=== PATIENT | female | born 1925 | race Caucasian/White ===

== ENCOUNTER 2016-12-20 18:34 | Inpatient (IN) | payer OTHER ==
--- NOTE | 2016-12-20 18:50 | PDOC ---
History of Present Illness <Gena Lacy Jenna - Last Filed: 12/20/16 23:05> - General History Source: Patient, EMS, Shelter Records Exam Limitations: No Limitations - History of Present Illness Initial Comments: 12/20/16 19:25 The patient is an 89 year old female (DNR), with significant past medical history of A-fib, CHF, HTN, hypothyroidism, who presents to the emergency department via ambulance from [facility] with 2 days of rectal bleeding. The staff at the prison noticed blood in the stool on Wednesday, 2 days ago. The patient recently switched from Coumadin to xarelto. The prison staff stopped xarelto 2 days ago when they noticed melena. EMS initially reported hypotension. She has a cali catheter in place. Denies fever, chills, nausea, vomiting. Denies abdominal pain. Allergies: none reported PCP: Dr. Goodwin <Erin Garland - Last Filed: 12/21/16 00:17> - General Stated Complaint: GI BLEED Time Seen by Provider: 12/20/16 18:43 Past History - Past Medical History Cardiac Disorders: Yes ([place]. A-Fib) CHF: Yes HTN: Yes Thyroid Disease: Yes (Hypothyroidism) - Psycho/Social/Smoking Cessation Hx Smoking History: Never smoked <Pablito Lacyjoselyn West - Last Filed: 12/20/16 23:05> <Erin Garland - Last Filed: 12/21/16 00:17> - Past Medical History Allergies/Adverse Reactions: Allergies Allergy/AdvReac Type Severity Reaction Status Date / Time No Known Allergies Allergy Verified 12/20/16 19:00 Home Medications: Ambulatory Orders Amino Acids/Protein Hydrolys [Proteinex Liquid] 30 ml PO TID 12/20/16 Aspirin [ASA -] 81 mg PO DAILY 12/20/16 Atorvastatin Ca [Lipitor] 80 mg PO HS 12/20/16 Brimonidine Tartrate [Alphagan P 0.1% -] 1 drop TID 12/20/16 Docusate Sodium 100 mg PO DAILY 12/20/16 Furosemide [Lasix] 40 mg PO DAILY 12/20/16 Latanoprost 0.005% Eye Drops [Xalatan 0.005% Eye Drops -] 1 drop HS 12/20/16 Levothyroxine [Synthroid -] 125 mcg PO DAILY 12/20/16 Metoprolol Tartrate 75 mg PO DAILY 12/20/16 Potassium Chloride [Klor-Con 10] 10 meq PO DAILY 12/20/16 Ranolazine [Ranexa -] 500 mg PO BID 12/20/16 Rivaroxaban [Xarelto -] 10 mg PO DAILY 12/20/16 Sennosides [Senokot] 8.6 mg PO BID 12/20/16 Valsartan [Diovan] 80 mg PO DAILY 12/20/16 Zinc Sulfate [Zinc-220] 220 mg PO DAILY 12/20/16 Review of Systems - Review of Systems Comments:: 12/20/16 19:26 CONSTITUTIONAL: Absent: fever, chills, diaphoresis, generalized weakness, malaise, loss of appetite HEENT: Absent: rhinorrhea, nasal congestion, throat pain, throat swelling, difficulty swallowing, mouth swelling, ear pain, eye pain, visual Changes CARDIOVASCULAR: Absent: chest pain, syncope, palpitations, irregular heart rate, lightheadedness , peripheral edema RESPIRATORY: Absent: cough, shortness of breath, dyspnea with exertion, orthopnea, wheezing, stridor, hemoptysis GASTROINTESTINAL: Present: melena Absent: abdominal pain, abdominal distension, nausea, vomiting, diarrhea, constipation, hematochezia GENITOURINARY: Absent: dysuria, frequency, urgency, hesitancy, hematuria, flank pain, genital pain MUSCULOSKELETAL: Absent: myalgia, arthralgia, joint swelling SKIN: Absent: rash, itching, pallor HEMATOLOGIC/IMMUNOLOGIC: Absent: easy bleeding, easy bruising, lymphadenopathy, frequent infections ENDOCRINE: Absent: unexplained weight gain, unexplained weight loss, heat intolerance, cold intolerance NEUROLOGIC: Absent: headache, focal weakness or paresthesias, dizziness, unsteady gait, seizure, mental status changes, bladder or bowel incontinence PSYCHIATRIC: Absent: anxiety, depression, suicidal or homicidal ideation, hallucinations. <Erin Garland - Last Filed: 12/21/16 00:17> *Physical Exam - Vital Signs Last Vital Signs Temp Pulse Resp BP Pulse Ox 97.7 F 77 18 108/58 100 12/20/16 18:35 12/20/16 18:35 12/20/16 18:35 12/20/16 18:35 12/20/16 18:35 - Physical Exam Comments: 12/20/16 19:26 GENERAL: Well developed, well nourished. Awake and alert. In no acute distress. HEENT: Normocephalic, atraumatic. PERRLA, EOMI. No conjunctival pallor. Sclera are non- icteric. Moist mucous membranes. Oropharynx is clear. NECK: Supple. Full ROM. No JVD. Carotid pulses 2+ and symmetric, without bruits. No thyromegaly. No lymphadenopathy. CARDIOVASCULAR: Regular rate and rhythm. No murmurs, rubs, or gallops. Distal pulses are 2+ and symmetric. PULMONARY: No evidence of respiratory distress. Lungs clear to auscultation bilaterally. No wheezing, rales or rhonchi. ABDOMINAL: Soft. Non-tender. Non-distended. No rebound or guarding. No organomegaly. Normoactive bowel sounds. RECTAL: melena present MUSCULOSKELETAL Normal range of motion at all joints. No bony deformities or tenderness. No CVA tenderness. EXTREMITIES: No cyanosis. No clubbing. No edema. No calf tenderness. SKIN: + 1cm stage 2 sacral decubitus ulcer. Warm and dry. Normal capillary refill. No rashes. No jaundice. NEUROLOGICAL: Alert, awake, appropriate. Cranial nerves 2-12 intact. No deficits to light touch and temperature in face, upper extremities and lower extremities. No motor deficits in the in face, upper extremities and lower extremities. Normoreflexic in the upper and lower extremities. Normal speech. Toes are downgoing bilaterally. Gait is normal without ataxia. PSYCHIATRIC: Cooperative. Good eye contact. Appropriate mood and affect. <Erin Garland - Last Filed: 12/21/16 00:17> Heart Score/ECG Review #1 12/21/16 00:14 A-fib with a competing junctional pacemaker with a rate of 71bpm. St & T wave abnormality.Old inferior infarct. P-R-T axes * -17 185 <Erin Garland - Last Filed: 12/21/16 00:17> ED Treatment Course - LABORATORY CBC & Chemistry Diagram: 12/20/16 19:41 12/20/16 19:41 <Gena Lacy - Last Filed: 12/20/16 23:05> - LABORATORY CBC & Chemistry Diagram: 12/20/16 19:41 12/20/16 19:41 <Erin Garland - Last Filed: 12/21/16 00:17> Medical Decision Making - Critical Care Time Total Critical Care Time (minutes): 60 Critical Care Statement: The care of this patient involved high complexity decision making to prevent further life threatening deterioration of the patient 's condition and/or to evalute & treat vital organ system(s) failure or risk of failure. - Medical Decision Making 12/20/16 23:05 initially hypotensive upon arrival,this 89 yo female p/w melena -pt has afib and had been on xeralto and this was stopped on Wednesday when red blood was seen in her stools -today she had black tarry stools hgn=7.9, hemotocrit=25, platelets>300 cardiac enzyme was positive with troponin=0.67 -pt typed and crossed, awaiting 2 units packed rbcs -discussed w Dr Pleitez.He is aware of her postitive troponin. She will be admitted to telemetry. Dr Laws for cards -I did speak to hematology Dr Keita ,covering for Dr Orr and he did not recommend any FFP because her INR is less than 1.5 -the xeralto should be out of her system in 48 hours -however if her bleeding should worsen or vital signs worsen,we may consider these <Gena Lacy - Last Filed: 12/20/16 23:05> *DC/Admit/Observation/Transfer - Discharge Dispostion Admit: Yes <Gena Lacy - Last Filed: 12/20/16 23:05> - Attestations Scribe Attestion: 12/20/16 19:26 Documentation prepared by BREANNE Black, acting as medical practice assistant for Gena Lacy MD. <Erin Garland - Last Filed: 12/21/16 00:17> Diagnosis at time of Disposition: Atrial fibrillation, chronic GI bleeding Qualifiers: GI bleed type/associated pathology: anorectal hemorrhage Qualified Code(s): K62.5 - Hemorrhage of anus and rectum Anemia Qualifiers: Anemia type: other cause Other causes of anemia: other cause, not classified Qualified Code(s): D64.89 - Other specified anemias - Referrals
[2016-12-20] MEDS ORDERED: SODIUM CHLORIDE 500 ML IV STA (18:51)
[2016-12-20] MEDS ORDERED: PANTOPRAZOLE SODIUM 40 MG in SODIUM CHLORIDE 100 ML IVPB ONE (19:18)
[2016-12-20] MEDS ORDERED: PANTOPRAZOLE SODIUM 100 ML IVPB ONE (19:44)
[2016-12-20 19:57] LABS: BASOPHIL 0.4 % (0-2.0); EOSINOPHIL 1.1 % (0-4.5); MCH 29.4 pg (25.7-33.7); MCHC 31.2 g/dl (32.0-36.0); MEAN CELL VOLUME 94.2 fl (80-96); MEAN PLT VOLUME 6.9 fl (7.5-11.1); NEUTROPHILS 82.8 % (42.8-82.8); PLATELET COUNT 358 K/MM3 (134-434); WHITE BLOOD COUNT 12.5 K/mm3 (4.0-10.0)
[2016-12-20 20:09] LABS: INR 1.47 (0.82-1.09); PROTHROMBIN TIME (PATIENT) 16.3 SEC (9.98-11.88)
[2016-12-20 20:19] LABS: ALBUMIN 2.1 g/dl (3.4-5.0); BILIRUBIN,TOTAL 0.3 mg/dL (0.2-1.0); CALCIUM 8.2 mg/dL (8.5-10.1); CREATININE 1.2 mg/dL (0.55-1.02); TOT PROT 5.4 g/dl (6.4-8.2)
[2016-12-20 20:37] LABS: TROPONIN I 0.67 ng/ml (0.00-0.05)
[2016-12-20] MEDS: BRIMONIDINE TARTRATE 0.1% OPHTHALMIC 5 ML BOTTLE OD SCH (23:00)
[2016-12-20] MEDS: RANOLAZINE E.R. 500 MG TABLET (FP) PO SCH (23:01)
[2016-12-20] MEDS: LATANOPROST 0.005% OPHTH SOLN 2.5ML BOTTLE OD SCH (23:01)
[2016-12-20] MEDS ORDERED: ATORVASTATIN CA 80 MG TABLET (FP) ONE (23:02)
[2016-12-20 23:03] LABS: URINE APPEARANCE CLOUDY; URINE BILIRUBIN NEGATIVE (NEGATIVE); URINE BLOOD NEGATIVE (NEGATIVE); URINE COLOR DKYELLOW; URINE GLUCOSE (UA) NEGATIVE (NEGATIVE); URINE KETONE NEGATIVE (NEGATIVE); URINE NITRITE NEGATIVE (NEGATIVE); URINE UROBILINOGEN NEGATIVE E.U./dl (0.2-1.0)
[2016-12-20 23:07] LABS: URINE LEUK ESTERASE 3+ (NEGATIVE); URINE PROTEIN 1+ (NEGATIVE)
[2016-12-20] MEDS: ATORVASTATIN CA 80 MG TABLET (FP) PO SCH (23:07)
[2016-12-20 23:09] LABS: URINE BACTERIA FEW /hpf (NONE SEEN); URINE HYALINE CAST 14 /lpf; URINE MUCUS RARE; URINE RBC 13 /hpf (0-3); URINE WBC 593 /hpf (3-5)
[2016-12-20 23:42] LABS: TROPONIN I 0.59 ng/ml (0.00-0.05)
[2016-12-21] MEDS ORDERED: LEVOTHYROXINE NA 25 MCG TABLET (FP) ONE (07:43)
[2016-12-21] MEDS: LEVOTHYROXINE NA 125 MCG TABLET (FP) PO SCH (07:52)
--- NOTE | 2016-12-21 08:26 | HP ---
Admitting History and Physical - Admission Chief Complaint: 89 y.o F was admitted to [facility] from [facility] due to melena, GI bleed. Pt was previously on Xarelto for AFIB, but it was d/c 2 days [facility]. In the ER transfused 2 units PRBC and admitted for further management. History of Present Illness: S/P [place]-NSTENMI. UTI CAD. Angina. Chronic AFIB.Diastolic CHF PAD, B/L LE Bypass sx Hypothyroidism E.Coli infection HTN Hx TB Pressure sore Muscle weakness Cystectomy. History Source: Medical Record Limitations to Obtaining History: Clinical Condition - Past Medical History Cardiovascular: Yes: CHF, HTN, [place] Endocrine: Yes: Hypothyroidism - Past Surgical History Past Surgical History: Yes: Bypass (Arterial bypasses in BL Legs,), Cystectomy - Smoking History Smoking history: Never smoked Have you smoked in the past 12 months: No - Alcohol/Substance Use Hx Alcohol Use: No Home Medications - Allergies Allergies/Adverse Reactions: Allergies Allergy/AdvReac Type Severity Reaction Status Date / Time No Known Allergies Allergy Verified 12/20/16 19:00 - Home Medications Home Medications: Ambulatory Orders Amino Acids/Protein Hydrolys [Proteinex Liquid] 30 ml PO TID 12/20/16 Aspirin [ASA -] 81 mg PO DAILY 12/20/16 Atorvastatin Ca [Lipitor] 80 mg PO HS 12/20/16 Brimonidine Tartrate [Alphagan P 0.1% -] 1 drop TID 12/20/16 Docusate Sodium 100 mg PO DAILY 12/20/16 Furosemide [Lasix] 40 mg PO DAILY 12/20/16 Latanoprost 0.005% Eye Drops [Xalatan 0.005% Eye Drops -] 1 drop HS 12/20/16 Levothyroxine [Synthroid -] 125 mcg PO DAILY 12/20/16 Metoprolol Tartrate 75 mg PO DAILY 12/20/16 Potassium Chloride [Klor-Con 10] 10 meq PO DAILY 12/20/16 Ranolazine [Ranexa -] 500 mg PO BID 12/20/16 Rivaroxaban [Xarelto -] 10 mg PO DAILY 12/20/16 Sennosides [Senokot] 8.6 mg PO BID 12/20/16 Valsartan [Diovan] 80 mg PO DAILY 12/20/16 Zinc Sulfate [Zinc-220] 220 mg PO DAILY 12/20/16 Family Disease History - Family Disease History Family History: Unremarkable Review of Systems Unable to obtain ROS, reason: patient condition Physical Examination Vital Signs: Vital Signs Temperature 97.5 F L 12/21/16 07:34 Pulse Rate 79 12/21/16 07:34 Respiratory Rate 18 12/21/16 07:34 Blood Pressure 103/58 12/21/16 07:34 O2 Sat by Pulse Oximetry (%) 97 12/21/16 07:34 Constitutional: Yes: Calm, Moderate Distress, Other (Acrocyanosis). No: Diaphoresis Eyes: Yes: Conjunctiva Clear, EOM Intact HENT: Yes: Atraumatic, Normocephalic. No: Drooling, Pharyngeal Erythema, Rhinnorhea Neck: Yes: Supple, Trachea Midline, Decreased ROM. No: Lymphadenopathy Cardiovascular: Yes: Pulse Irregular, Murmur. No: Bradycardia, Tachycardia Respiratory: Yes: CTA Bilaterally. No: Accessory Muscle Use, Bradypnea, Cough, Diminished Gastrointestinal: Yes: Soft. No: Abdomen, Obese, Palpable Mass, Tenderness ...Rectal Exam: Yes: Deferred Renal/: Yes: Collins Present Breast(s): Yes: WNL Musculoskeletal: Yes: Muscle Weakness Extremities: Yes: Other (Acrocyanosis UE). No: Amputation, Calf Tenderness Edema: No Peripheral Pulses WNL: No Integumentary: Yes: Pressure Ulcer Neurological: Yes: Alert, Oriented. No: Aphasia, Babinski negative, Facial Droop, Lethargy, Loss of Sensation ...Motor Strength: WNL Psychiatric: Yes: WNL Labs: Laboratory Results - last 24 hr 12/20/16 12/20/16 12/20/16 19:41 19:41 19:41 WBC 12.5 H RBC 2.70 L Hgb 7.9 L Hct 25.4 L MCV 94.2 MCHC 31.2 L RDW 20.0 H Plt Count 358 MPV 6.9 L Neutrophils % 82.8 Lymphocytes % 9.0 Monocytes % 6.7 Eosinophils % 1.1 Basophils % 0.4 INR 1.47 H Sodium Potassium Chloride Carbon Dioxide Anion Gap BUN Creatinine Creat Clearance w eGFR Random Glucose Calcium Total Bilirubin AST ALT Alkaline Phosphatase Creatine Kinase Troponin I Total Protein Albumin Urine Color Urine Appearance Urine pH Ur Specific [place] Urine Protein Urine Glucose (UA) Urine Ketones Urine Blood Urine Nitrite Urine Bilirubin Urine Urobilinogen Ur Leukocyte Esterase Urine RBC Urine WBC Ur Epithelial Cells Urine Bacteria Hyaline Casts Urine Mucus Stool Occult Blood Positive Blood Type Antibody Screen Crossmatch 12/20/16 12/20/16 12/20/16 19:41 19:41 19:41 WBC RBC Hgb Hct MCV MCHC RDW Plt Count MPV Neutrophils % Lymphocytes % Monocytes % Eosinophils % Basophils % INR Sodium 142 Potassium 3.9 Chloride 105 Carbon Dioxide 27 Anion Gap 10 BUN 64 H Creatinine 1.2 H Creat Clearance w eGFR 42.30 Random Glucose 117 H Calcium 8.2 L Total Bilirubin 0.3 AST 14 L ALT 16 Alkaline Phosphatase 53 Creatine Kinase 38 Troponin I 0.67 H* Total Protein 5.4 L Albumin 2.1 L Urine Color Urine Appearance Urine pH Ur Specific [place] Urine Protein Urine Glucose (UA) Urine Ketones Urine Blood Urine Nitrite Urine Bilirubin Urine Urobilinogen Ur Leukocyte Esterase Urine RBC Urine WBC Ur Epithelial Cells Urine Bacteria Hyaline Casts Urine Mucus Stool Occult Blood Blood Type A POSITIVE Antibody Screen Negative Crossmatch See Detail 12/20/16 12/20/16 12/20/16 22:40 22:40 23:10 WBC RBC Hgb Hct MCV MCHC RDW Plt Count MPV Neutrophils % Lymphocytes % Monocytes % Eosinophils % Basophils % INR Sodium Potassium Chloride Carbon Dioxide Anion Gap BUN Creatinine Creat Clearance w eGFR Random Glucose Calcium Total Bilirubin AST ALT Alkaline Phosphatase Creatine Kinase 43 Troponin I 0.59 H Total Protein Albumin Urine Color Dkyellow Urine Appearance Cloudy Urine pH 5.0 Ur Specific [place] 1.017 Urine Protein 1+ H Urine Glucose (UA) Negative Urine Ketones Negative Urine Blood Negative Urine Nitrite Negative Urine Bilirubin Negative Urine Urobilinogen Negative Ur Leukocyte Esterase 3+ H Urine RBC 13 Urine WBC 593 Ur Epithelial Cells Rare Urine Bacteria Few Hyaline Casts 14 Urine Mucus Rare Stool Occult Blood Blood Type A POSITIVE Antibody Screen Crossmatch Imaging - Results Chest X-ray: Report Reviewed Problem List - Problems (1) Anemia Assessment/Plan: PRBC TX Follow H/H Code(s): D64.9 - ANEMIA, UNSPECIFIED Qualifiers: Anemia type: other cause Other causes of anemia: acute posthemorrhagic Qualified Code(s): D62 - Acute posthemorrhagic anemia (2) Atrial fibrillation, chronic Assessment/Plan: D/C A/C Control V-Rate Code(s): I48.2 - CHRONIC ATRIAL FIBRILLATION (3) GI bleeding Assessment/Plan: Probably UGI. GI f/u Protonix IV Code(s): K92.2 - GASTROINTESTINAL HEMORRHAGE, UNSPECIFIED Qualifiers: GI bleed type/associated pathology: anorectal hemorrhage Qualified Code (s): K62.5 - Hemorrhage of anus and rectum (4) NSTEMI (non-ST elevated myocardial infarction) Assessment/Plan: Follow Trop I-positive, EKG noted Cardiology Continue BAB Hold Aspirin, a/c 2 GI bleed Code(s): I21.4 - NON-ST ELEVATION (NSTEMI) MYOCARDIAL INFARCTION (5) Acute renal insufficiency Assessment/Plan: Elevated BUN and increased BUN/Creat-probably due to acute GI bleed. Code(s): N28.9 - DISORDER OF KIDNEY AND URETER, UNSPECIFIED (6) UTI (urinary tract infection) Assessment/Plan: UTI, R/o sepsis, Hypothermia, elevated WBC, lactic-p Bld Cx, Ua cx, IV ABX Code(s): N39.0 - URINARY TRACT INFECTION, SITE NOT SPECIFIED Qualifiers: Urinary tract infection type: site unspecified
[2016-12-21] MEDS ORDERED: D5-1/2NS+10 MEQ KCL - 1,000 ML IV SCH (08:45)
[2016-12-21] MEDS: POTASSIUM CHLORIDE 10 MEQ in DEXTROSE 5%-0.45% SALINE 1,000 ML IVPB SCH (09:52)
[2016-12-21] MEDS ORDERED: PANTOPRAZOLE SODIUM 100 ML IVPB SCH (10:00)
[2016-12-21] MEDS: FUROSEMIDE 40 MG TABLET (FP) PO SCH (10:08)
[2016-12-21] MEDS: METOPROLOL TARTRATE 25 MG TABLET (FP) PO SCH (10:08)
[2016-12-21] MEDS: DOCUSATE SODIUM 100 MG CAPSULE (FP) PO SCH (10:11)
[2016-12-21] MEDS: POTASSIUM CHLORIDE TABS 10 MEQ TABLET.ER (FP) PO SCH (10:11)
[2016-12-21] MEDS: RANOLAZINE E.R. 500 MG TABLET (FP) PO SCH ×2 (10:13→22:00)
[2016-12-21 10:23] LABS: BASOPHIL 0.9 % (0-2.0); EOSINOPHIL 0.3 % (0-4.5); MCH 30.8 pg (25.7-33.7); MCHC 33.6 g/dl (32.0-36.0); MEAN CELL VOLUME 91.6 fl (80-96); MEAN PLT VOLUME 6.6 fl (7.5-11.1); NEUTROPHILS 87.7 % (42.8-82.8); PLATELET COUNT 290 K/MM3 (134-434); RDW 16.3 % (11.6-15.6); WHITE BLOOD COUNT 17.2 K/mm3 (4.0-10.0)
[2016-12-21] MEDS: CEFTRIAXONE 50 ML IVPB SCH (10:23)
[2016-12-21] MEDS: BRIMONIDINE TARTRATE 0.1% OPHTHALMIC 5 ML BOTTLE OD SCH ×3 (10:31→22:19)
[2016-12-21 10:32] LABS: THYROID STIMULATING HORMONE 0.4 uIU/ml (0.358-3.74)
[2016-12-21 10:48] LABS: ALBUMIN 2.3 g/dl (3.4-5.0); CALCIUM 8.3 mg/dL (8.5-10.1)
[2016-12-21 10:51] LABS: BILIRUBIN,TOTAL 0.9 mg/dL (0.2-1.0); CREATININE 1.2 mg/dL (0.55-1.02); PHOSPHOROUS 4.5 mg/dL (2.5-4.9); TOT PROT 5.6 g/dl (6.4-8.2)
--- NOTE | 2016-12-21 10:51 | CON.CARD ---
Consult Consult Specialty:: Cardiology Referred by:: Dr. Goodwin Reason for Consultation:: GI bleed on Xarelto, NSTEMI - History of Present Illness Chief Complaint: GI bleed History of Present Illness: 89 year old woman with a history of CAD h/o UT, chronic afib previously on coumadin, recently switched to Xarelto, PAD with h/o b/l LE bypass, HTN, HLD noted to have melena at [facility], Xarelto stopped 2 days ago, sent to ER. Pt. noted to have anemia, evidence of ischemia on ekg, and elevated troponin, she is now s/p 2 units PRBCs. Pt. seen and examined in the ER in nad. awake, alert, oriented. she denies any complaints. denies any chest pain, sob, palpitations, pnd, orthopnea, or LE edema. no lightheadedness or dizziness. no further rectal bleeding. - History Source History Provided By: Patient, Medical Record Limitations to Obtaining History: No Limitations - Past Medical History Cardio/Vascular: Yes: AFIB, CAD, CHF, HTN, Hyperlipdemia, [place] Endocrine: Yes: Hypothyroidism - Past Surgical History Past Surgical History: Yes: Bypass (Arterial bypasses in BL Legs,), Cystectomy - Alcohol/Substance Use Hx Alcohol Use: No - Smoking History Smoking history: Never smoked Have you smoked in the past 12 months: No - Social History Usual Living Arrangement: [facility]dc ADL: Support Services History of Recent Travel: No Home Medications - Allergies Allergies/Adverse Reactions: Allergies Allergy/AdvReac Type Severity Reaction Status Date / Time No Known Allergies Allergy Verified 12/20/16 19:00 - Home Medications Home Medications: Ambulatory Orders Amino Acids/Protein Hydrolys [Proteinex Liquid] 30 ml PO TID 12/20/16 Aspirin [ASA -] 81 mg PO DAILY 12/20/16 Atorvastatin Ca [Lipitor] 80 mg PO HS 12/20/16 Brimonidine Tartrate [Alphagan P 0.1% -] 1 drop TID 12/20/16 Docusate Sodium 100 mg PO DAILY 12/20/16 Furosemide [Lasix] 40 mg PO DAILY 12/20/16 Latanoprost 0.005% Eye Drops [Xalatan 0.005% Eye Drops -] 1 drop HS 12/20/16 Levothyroxine [Synthroid -] 125 mcg PO DAILY 12/20/16 Metoprolol Tartrate 75 mg PO DAILY 12/20/16 Potassium Chloride [Klor-Con 10] 10 meq PO DAILY 12/20/16 Ranolazine [Ranexa -] 500 mg PO BID 12/20/16 Rivaroxaban [Xarelto -] 10 mg PO DAILY 12/20/16 Sennosides [Senokot] 8.6 mg PO BID 12/20/16 Valsartan [Diovan] 80 mg PO DAILY 12/20/16 Zinc Sulfate [Zinc-220] 220 mg PO DAILY 12/20/16 Family Disease History - Family Disease History Family History: Denies Review of Systems - Review of Systems Constitutional: reports: Weakness. denies: No Symptoms, Chills, Diaphoresis, Fever, Lethargy, Loss of Appetite, Malaise, Night Sweats, Unintentional Wgt. Loss, Other Eyes: denies: No Symptoms, Blind Spots, Blurred Vision, Double Vision, Eye Pain , Floaters, Photophobia, Recent Change in Vision, Other HENT: denies: No Symptoms, Difficult Swallowing, Ear Discharge, Ear Pain, Epistaxis, Gingival Bleeding, Hearing Loss, Mouth Swelling, Nasal Congestion, Ocular Prosthesis, Throat Pain, Toothache, Ringing in Ears, Other Neck: denies: No Symptoms, Decreased ROM, Lumps, Pain on Movement, Stiffness, Swollen Glands, Tenderness, Other Cardiovascular: denies: No Symptoms, Chest Pain, Edema, Palpitations, Shortness of Breath, Other Respiratory: denies: No Symptoms, Cough, Exercise Intolerance, Hemoptysis, Orthopnea, PND, Snoring, SOB, SOB on Exertion, Wheezing, Other Gastrointestinal: reports: Melena, Rectal Bleeding. denies: No Symptoms, Abdominal Pain, Bloating, Constipation, Diarrhea, Dysphagia, Indigestion, Nausea , Vomiting, Vomiting Blood, Other Genitourinary: denies: No Symptoms, Burning, Discharge, Dysuria, Flank Pain, Frequency, Hematuria, Incontinence, Lesions, Menses, Pain, Testicular Mass, Testicular Pain, Testicular Swelling, Urgency, Vaginal Bleeding, Other Breasts: denies: No Symptoms Reported, See HPI, Breast Implants, Discharge from Nipple, Lumps, Pain, Skin Changes, Other Musculoskeletal: denies: No Symptoms, Back Pain, Crepitus, Decreased ROM, Extremity Pain, Joint Pain, Joint Swelling, Muscle Pain, Muscle Cramps, Muscle Weakness, Other Integumentary: denies: No Symptoms, Blister, Bruising, Change in Color, Eczema, Erythema, Incision, Lesions, Lump, Pallor, Pruritis, Rash, Wound, Other Neurological: denies: No Symptoms, Change in LOC, Change in Speech, Confusion, Dizziness, Headache, Incoordination, Numbness, Parasthesia, Pre-Existing Deficit , Seizure, Syncope, Tremors, Unsteady Gait, Weakness, Other Endocrine: denies: No Symptoms, Excessive Sweating, Flushing, Increased Hunger, Increased Thirst, Intolerance to Cold, Intolerance to Heat, Unexplained Weight Gain, Unexplained Weight Loss, Other Hematology/Lymphatic: denies: No Symptoms, Easily Bruised, Excessive Bleeding, Swollen Glands, Other Psychiatric: denies: No Symptoms, Altered Sleep Pattern, Anxiety, Depression, Hallucinations, Panic, Paranoia, Suicidal, Other - Risk Factors Known Risk Factors: Yes: Age, Hypercholesterolemia, Hypertension, Physical Inactivity, Prior UT /Emb Stroke Vital Signs: Vital Signs Temperature 96.9 F L 12/21/16 08:23 Pulse Rate 72 12/21/16 08:23 Respiratory Rate 20 12/21/16 08:23 Blood Pressure 97/46 12/21/16 08:23 O2 Sat by Pulse Oximetry (%) 97 12/21/16 07:34 Constitutional: Yes: Well Nourished, No Distress, Calm Eyes: Yes: WNL, Conjunctiva Clear, EOM Intact HENT: Yes: WNL, Atraumatic, Normocephalic Neck: Yes: WNL, Supple, Trachea Midline Respiratory: Yes: WNL, Regular, CTA Bilaterally. No: Rales, Rhonchi, Wheezes Gastrointestinal: Yes: WNL, Normal Bowel Sounds, Soft. No: Distention, Tenderness Renal/: Yes: WNL Cardiovascular: Yes: Pulse Irregular. No: Regular Rate and Rhythm, Bradycardia , Tachycardia, Gallop, Rub, Varicosities JVD: No Carotid Bruit: No PMI: Non-Displaced Heart Sounds: Yes: S1, S2. No: Split S2, S3, S4, Clicks, Gallop, Rub, Bruit Murmur: No: Systolic Murmur, Diastolic Murmur Musculoskeletal: Yes: WNL Extremities: Yes: WNL Edema: No Peripheral Pulses WNL: Yes Peripheral Pulses: 2+ Left Doralis Pedis, 2+ Right Dorsalis Pedis Integumentary: Yes: WNL Neurological: Yes: Alert, Oriented, Cran Nerves II-XII Intact Psychiatric: Yes: Alert, Oriented - Other Data Labs, Other Data: CBC, BMP 12/21/16 09:51 INR, PTT INR 1.47 (0.82-1.09) H 12/20/16 19:41 Troponin, BNP 12/20/16 22:40 Troponin I 0.59 H Troponin, BNP 12/20/16 22:40 Troponin I 0.59 H ekg- 12/20-Afib 83bpm, St depressions V2-V6, I avL, anterolateral ischemia, possible inferior infarct, possible anterior infarct Echo: Pending Imaging - Results Chest X-ray: Report Reviewed, Image Reviewed EKG: Report Reviewed, Image Reviewed Other: Report Reviewed, Image Reviewed Problem List - Problems (1) Acute renal insufficiency Code(s): N28.9 - DISORDER OF KIDNEY AND URETER, UNSPECIFIED (2) Anemia Code(s): D64.9 - ANEMIA, UNSPECIFIED Qualifiers: Anemia type: other cause Other causes of anemia: acute posthemorrhagic Qualified Code(s): D62 - Acute posthemorrhagic anemia (3) Atrial fibrillation, chronic Code(s): I48.2 - CHRONIC ATRIAL FIBRILLATION (4) GI bleeding Code(s): K92.2 - GASTROINTESTINAL HEMORRHAGE, UNSPECIFIED Qualifiers: GI bleed type/associated pathology: anorectal hemorrhage Qualified Code (s): K62.5 - Hemorrhage of anus and rectum (5) NSTEMI (non-ST elevated myocardial infarction) Code(s): I21.4 - NON-ST ELEVATION (NSTEMI) MYOCARDIAL INFARCTION (6) CAD (coronary artery disease) Code(s): I25.10 - ATHSCL HEART DISEASE OF [place] CORONARY ARTERY W/O ANG PCTRS (7) HTN (hypertension) Code(s): I10 - ESSENTIAL (PRIMARY) HYPERTENSION (8) HLD (hyperlipidemia) Code(s): E78.5 - HYPERLIPIDEMIA, UNSPECIFIED Assessment/Plan 89 year old woman with a history of CAD h/o UT, chronic afib previously on coumadin, recently switched to Xarelto, PAD with h/o b/l LE bypass, HTN, HLD noted to have melena at [facility], Xarelto stopped 2 days ago, sent to ER. Pt. noted to have anemia, evidence of ischemia on ekg, and elevated troponin, she is now s/p 2 units PRBCs. Atrial fibrillation-chronic, has been on Xarelto -now with GI bleed with significant anemia requiring 2 units PRBC -off Xarelto now 3-4 days -hold all AC -HR is currently adequately controlled -cont metoprolol as long as BP tolerates -tele monitoring for now NSTEMI-h/o CAD with prior NSTEMI, need to clarify if pt had PCI in the past -1st ekg as above, possible anterolateral ischemia, inferior and anterior infarcts -troponin elevated but not trending up 0.67--> 0.59 with normal CK level -likely demand ischemia in setting of GI bleed/anemia with known underlying CAD -f/up echo done this am, images briefly reviewed at bedside appeared to be grossly normal LV systolic function -repeat ekg this am -s/p 2 units PRBCs, correct anemia -cont to trend cardiac enzymes and ekgs -hold anti-platelets and AC in setting of gi bleed -cont metoprolol as BP tolerates -cont statin -tele monitoring either on tele floor or ICU -given advanced age and significant co-morbidities (including GI bleed and DMITRY) pt unlikely to benefit from cardiac cath, would prefer to treat conservatively -when possible from a bleeding standpoint would consider starting anti-platelets -currently euvolemic, can hold lasix as BP low normal and noted to have DMITRY on labs
[2016-12-21 11:52] VITALS: BMI 28.3
--- NOTE | 2016-12-21 12:14 | CON.GI ---
Consult Consult Specialty:: Gastroenterology Referred by:: Dr. Earl Goodwin Reason for Consultation:: GI bleeding - History of Present Illness Chief Complaint: Black stools History of Present Illness: 89W junaid is transferred for [facility] where she developed black stools. She was apparently on Xarelto for afib until 2 days ago. She denies abdominal pain or hematemesis. She has never had any previous GI bleeding and has never had an EGD or a colonoscopy. No h/o ulcer disease. 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 Her troponins are positive. - History Source History Provided By: Patient Limitations to Obtaining History: No Limitations - Past Medical History Cardio/Vascular: Yes: AFIB, CAD, CHF, HTN, Hyperlipdemia, NE Endocrine: Yes: Hypothyroidism Additional Medical History: Glaucoma - Past Surgical History Past Surgical History: Yes: Bypass (Arterial bypasses in [place],), Cystectomy ( ovarian cystectomy ( melon sized but benign)) - Alcohol/Substance Use Hx Alcohol Use: No - Smoking History Smoking history: Former smoker Have you smoked in the past 12 months: No If you are a former smoker, when did you quit?: over 20 years ago - Social History Usual Living Arrangement: Senior Living ADL: Support Services Occupation: [employer] j[employer] Place of : Other ([place]) Came to [place] (year): age 4 History of Recent Travel: No Home Medications - Allergies Allergies/Adverse Reactions: Allergies Allergy/AdvReac Type Severity Reaction Status Date / Time No Known Allergies Allergy Verified 12/20/16 19:00 - Home Medications Home Medications: Ambulatory Orders Amino Acids/Protein Hydrolys [Proteinex Liquid] 30 ml PO TID 12/20/16 Aspirin [ASA -] 81 mg PO DAILY 12/20/16 Atorvastatin Ca [Lipitor] 80 mg PO HS 12/20/16 Brimonidine Tartrate [Alphagan P 0.1% -] 1 drop TID 12/20/16 Docusate Sodium 100 mg PO DAILY 12/20/16 Furosemide [Lasix] 40 mg PO DAILY 12/20/16 Latanoprost 0.005% Eye Drops [Xalatan 0.005% Eye Drops -] 1 drop HS 12/20/16 Levothyroxine [Synthroid -] 125 mcg PO DAILY 12/20/16 Metoprolol Tartrate 75 mg PO DAILY 12/20/16 Potassium Chloride [Klor-Con 10] 10 meq PO DAILY 12/20/16 Ranolazine [Ranexa -] 500 mg PO BID 12/20/16 Rivaroxaban [Xarelto -] 10 mg PO DAILY 12/20/16 Sennosides [Senokot] 8.6 mg PO BID 12/20/16 Valsartan [Diovan] 80 mg PO DAILY 12/20/16 Zinc Sulfate [Zinc-220] 220 mg PO DAILY 12/20/16 Family Disease History - Family Disease History Family Disease History: Heart Disease: Father ( 74 of NE), Other: Mother ( 87 of CVA) Review of Systems - Review of Systems Constitutional: reports: No Symptoms Eyes: reports: Blurred Vision HENT: reports: No Symptoms Neck: reports: No Symptoms Cardiovascular: reports: Shortness of Breath Respiratory: reports: Exercise Intolerance Gastrointestinal: reports: Melena Neurological: reports: Dizziness Physical Exam-GI Vital Signs: Vital Signs Temperature 96.9 F L 12/21/16 08:23 Pulse Rate 73 12/21/16 11:41 Respiratory Rate 18 12/21/16 11:41 Blood Pressure 101/38 12/21/16 11:41 O2 Sat by Pulse Oximetry (%) 97 12/21/16 11:41 CBC,CMP WBC 17.2 K/mm3 (4.0-10.0) H D 12/21/16 09:51 Corrected WBC (auto) Cancelled 12/21/16 09:40 RBC 3.47 M/mm3 (3.60-5.2) L D 12/21/16 09:51 Hgb 10.7 GM/dL (10.7-15.3) D 12/21/16 09:51 Hct 31.8 % (32.4-45.2) L D 12/21/16 09:51 MCV 91.6 fl (80-96) 12/21/16 09:51 MCHC 33.6 g/dl (32.0-36.0) 12/21/16 09:51 RDW 16.3 % (11.6-15.6) H D 12/21/16 09:51 Plt Count 290 K/MM3 (134-434) 12/21/16 09:51 MPV 6.6 fl (7.5-11.1) L 12/21/16 09:51 Neutrophils % 87.7 % (42.8-82.8) H 12/21/16 09:51 Lymphocytes % 6.1 % (8-40) L D 12/21/16 09:51 Monocytes % 5.0 % (3.8-10.2) 12/21/16 09:51 Eosinophils % 0.3 % (0-4.5) 12/21/16 09:51 Basophils % 0.9 % (0-2.0) 12/21/16 09:51 Differential Comment Cancelled 12/21/16 09:40 Smudge Cells Cancelled 12/21/16 09:40 Platelet Estimate Cancelled 12/21/16 09:40 Platelet Comment Cancelled 12/21/16 09:40 Platelet Comment Cancelled 12/21/16 09:40 RBC Morphology Cancelled 12/21/16 09:40 Sodium 142 mmol/L (136-145) 12/21/16 09:40 Potassium 3.8 mmol/L (3.5-5.1) 12/21/16 09:40 Chloride 105 mmol/L (98-107) 12/21/16 09:40 Carbon Dioxide 23 mmol/L (21-32) 12/21/16 09:40 Anion Gap 14 (8-16) 12/21/16 09:40 BUN 62 mg/dL (7-18) H 12/21/16 09:40 Creatinine 1.2 mg/dL (0.55-1.02) H 12/21/16 09:40 Creat Clearance w eGFR 42.30 (>60) 12/21/16 09:40 Random Glucose 82 mg/dL (74-106) D 12/21/16 09:40 Hemoglobin A1c % 4.6 % (4.8-6.0) L 12/21/16 09:40 Lactic Acid 2.998 mmol/L (0.4-2.0) H* 12/21/16 09:40 Calcium 8.3 mg/dL (8.5-10.1) L 12/21/16 09:40 Phosphorus 4.5 mg/dL (2.5-4.9) 12/21/16 09:40 Magnesium 2.0 mg/dL (1.8-2.4) 12/21/16 09:40 Total Bilirubin 0.9 mg/dL (0.2-1.0) D 12/21/16 09:40 AST 14 U/L (15-37) L 12/21/16 09:40 ALT 16 U/L (12-78) 12/21/16 09:40 Alkaline Phosphatase 62 U/L (45-117) 12/21/16 09:40 Creatine Kinase 43 IU/L (26-192) 12/20/16 22:40 Troponin I 0.59 ng/ml (0.00-0.05) H 12/20/16 22:40 Total Protein 5.6 g/dl (6.4-8.2) L 12/21/16 09:40 Albumin 2.3 g/dl (3.4-5.0) L 12/21/16 09:40 TSH 0.40 uIU/ml (0.358-3.74) 12/21/16 09:40 Current Medications Generic Name Dose Route Start Last Admin Trade Name Kyreeq PRN Reason Stop Dose Admin Atorvastatin Calcium 80 mg 12/20/16 22:00 12/20/16 23:07 Lipitor - PO 80 mg HS LALA Administration Brimonidine Tartrate 1 drop 12/20/16 22:00 12/20/16 23:00 Alphagan P 0.1% - OD 1 drop TID LALA Administration Docusate Sodium 100 mg 12/21/16 10:00 12/21/16 10:11 Colace - PO Not Given DAILY LALA Furosemide 40 mg 12/21/16 10:00 12/21/16 10:08 Lasix - PO Not Given DAILY [facility] Ceftriaxone Sodium 50 mls @ 100 mls/hr 12/21/16 10:00 12/21/16 10:23 Rocephin 1gm Ivpb (Pre-Docked) IVPB 100 mls/hr DAILY [facility] Administration Pantoprazole Sodium 100 mls @ 200 mls/hr 12/21/16 10:00 12/21/16 10:06 Protonix 40mg Ivpb (Pre-Docked) IVPB 200 mls/hr BID LALA Administration Potassium Chloride 10 meq/ 1,005 mls @ 42 mls/hr 12/21/16 09:09 12/21/16 09:52 Dextrose/Sodium Chloride IVPB 42 mls/hr Q24H [facility] Administration Latanoprost 1 drop 12/20/16 22:00 12/20/16 23:01 Xalatan 0.005% Eye Drops - OD 1 drop HS [facility]ALA Administration Levothyroxine Sodium 125 mcg 12/21/16 07:00 12/21/16 07:52 Synthroid - PO 125 mcg DAILY@0700 [facility] Administration Metoprolol Tartrate 75 mg 12/21/16 10:00 12/21/16 10:08 Lopressor - PO Not Given DAILY [facility] Potassium Chloride 10 meq 12/21/16 10:00 12/21/16 10:11 K-Dur - PO 10 meq DAILY [facility] Administration Ranolazine 500 mg 12/20/16 22:00 12/21/16 10:13 Ranexa - PO 500 mg BID LALA Administration Constitutional: Yes: Calm Eyes: Yes: Conjunctiva Clear HENT: Yes: Atraumatic Neck: Yes: Supple Cardiovascular: Yes: Pulse Irregular Respiratory: Yes: CTA Bilaterally Gastrointestinal Inspection: Yes: Scars (healed vertical suprapubic incision) ...Auscultate: Yes: Normoactive Bowel Sounds ...Palpate: Yes: Soft, Other (nontender) ...Rectal Exam: Yes: Guaiac Positive (melena), Other (no masses) Musculoskeletal: Yes: WNL Extremities: Yes: Cyanosis (of fingers) Labs: CBC, BMP 12/21/16 09:51 12/21/16 09:40 INR, PTT INR 1.47 (0.82-1.09) H 12/20/16 19:41 Assessment/Plan Sister Maggie's bleeding is suspected to be UGI in origin but small bowel or a colonic source cannot be excluded. The anemia has led to ischemic changes and a possible NSTEMI. I have discussed the case with Dr Le and have been asked to keep endoscopies on hold. I have discussed EGD and colonoscopy in detail with Sister Maggie and informed her that among others she would be paced at risk of endoscopic bowel perforation or hemorrhage. She has signed consent for both procedures should bith become necessary We await cardiology clearance before scheduling. An empiric PPI drip will be started. Clear liquids will be allowed.
[2016-12-21] MEDS: PANTOPRAZOLE SODIUM 80 MG in SODIUM CHLORIDE 100 ML IVPB SCH (16:59)
[2016-12-21] MEDS: ATORVASTATIN CA 80 MG TABLET (FP) PO SCH (22:00)
--- NOTE | 2016-12-21 22:12 | CONSULT ---
Consult - text type - Consultation Consultation Note: The patient is an 89 year old female (DNR), with significant past medical history of A-fib, CHF, HTN, hypothyroidism, who presented to the emergency department via ambulance from [facility] with 2 days of rectal bleeding. The patient recently switched from Coumadin to xarelto. The long-term staff stopped xarelto 2 days ago when they noticed melena. Denies fever, chills, nausea, vomiting. Denies abdominal pain. Allergies: none reported - Past Medical History Cardiac Disorders: Yes (ND. A-Fib) CHF: Yes HTN: Yes Thyroid Disease: Yes (Hypothyroidism) ?raynauds - Psycho/Social/Smoking Cessation Hx Smoking History: Never smoked Allergies/Adverse Reactions: Allergies Allergy/AdvReac Type Severity Reaction Status Date / Time No Known Allergies Allergy Verified 12/20/16 19:00 Home Medications: Ambulatory Orders Amino Acids/Protein Hydrolys [Proteinex Liquid] 30 ml PO TID 12/20/16 Aspirin [ASA -] 81 mg PO DAILY 12/20/16 Atorvastatin Ca [Lipitor] 80 mg PO HS 12/20/16 Brimonidine Tartrate [Alphagan P 0.1% -] 1 drop TID 12/20/16 Docusate Sodium 100 mg PO DAILY 12/20/16 Furosemide [Lasix] 40 mg PO DAILY 12/20/16 Latanoprost 0.005% Eye Drops [Xalatan 0.005% Eye Drops -] 1 drop HS 12/20/16 Levothyroxine [Synthroid -] 125 mcg PO DAILY 12/20/16 Metoprolol Tartrate 75 mg PO DAILY 12/20/16 Potassium Chloride [Klor-Con 10] 10 meq PO DAILY 12/20/16 Ranolazine [Ranexa -] 500 mg PO BID 12/20/16 Rivaroxaban [Xarelto -] 10 mg PO DAILY 12/20/16 Sennosides [Senokot] 8.6 mg PO BID 12/20/16 Valsartan [Diovan] 80 mg PO DAILY 12/20/16 Zinc Sulfate [Zinc-220] 220 mg PO DAILY 12/20/16 Active Medications Generic Name Dose Route Start Last Admin Trade Name Freq PRN Reason Stop Dose Admin Atorvastatin Calcium 80 mg 12/20/16 22:00 12/21/16 22:00 Lipitor - PO 80 mg HS LALA Administration Brimonidine Tartrate 1 drop 12/20/16 22:00 12/21/16 17:00 Alphagan P 0.1% - OD Not Given TID [facility] Docusate Sodium 100 mg 12/21/16 10:00 12/21/16 10:11 Colace - PO Not Given DAILY [facility] Furosemide 40 mg 12/21/16 10:00 12/21/16 10:08 Lasix - PO Not Given DAILY [facility] Ceftriaxone Sodium 50 mls @ 100 mls/hr 12/21/16 10:00 12/21/16 10:23 Rocephin 1gm Ivpb (Pre-Docked) IVPB 100 mls/hr DAILY [facility] Administration Potassium Chloride 10 meq/ 1,005 mls @ 42 mls/hr 12/21/16 09:09 12/21/16 09:52 Dextrose/Sodium Chloride IVPB 42 mls/hr Q24H [facility] Administration Pantoprazole Sodium 80 mg/ 100 mls @ 10 mls/hr 12/21/16 12:45 12/21/16 16:59 Sodium Chloride IVPB 10 mls/hr Q10H [facility]ALA Administration 8 MG/HR Latanoprost 1 drop 12/20/16 22:00 12/20/16 23:01 Xalatan 0.005% Eye Drops - OD 1 drop HS [facility]A Administration Levothyroxine Sodium 125 mcg 12/21/16 07:00 12/21/16 07:52 Synthroid - PO 125 mcg DAILY@0700 [facility] Administration Metoprolol Tartrate 75 mg 12/21/16 10:00 12/21/16 10:08 Lopressor - PO Not Given DAILY [facility] Potassium Chloride 10 meq 12/21/16 10:00 12/21/16 10:11 K-Dur - PO 10 meq DAILY [facility] Administration Ranolazine 500 mg 12/20/16 22:00 12/21/16 22:00 Ranexa - PO 500 mg BID LALA Administration *Physical Exam - Vital Signs Last Vital Signs Temp Pulse Resp BP Pulse Ox 98.2 F 72 20 94/50 97 12/21/16 15:37 12/21/16 15:37 12/21/16 15:37 12/21/16 15:37 12/21/16 11:41 Cor: RSR, No murmurs, No gallops Lungs: Clear to P&A Abd: Soft, Normal bowel sounds, No organomegaly Ext:No significant edema. cyanosis of finger tips A/P 89 y/o patient with CHf, afib, htn, hypothyroid, recntly switched from coumadin to xeralto, comes in with melaena, Hgb 7.9., NSTEMI s/p PRBCs--hgb 10.7 off xeralto for > 48hrs. awaiting cardiology clearence for gi procedures On PPI when cleared by gi for a/c would consider switching her back to coumadin need for bridging to be determined by cardiology TSH--nl/stool occult+ check irons tudies/B12/folate UTI --treating per PMD. cultures pending wll follow
[2016-12-21 22:13] LABS: TROPONIN I 0.44 ng/ml (0.00-0.05)
[2016-12-21] MEDS: LATANOPROST 0.005% OPHTH SOLN 2.5ML BOTTLE OD SCH (22:19)
[2016-12-22] MEDS ORDERED: PT OWN MED DRAWER 7, Y5N ONE ×2 (06:10→07:04)
[2016-12-22] MEDS: LEVOTHYROXINE NA 125 MCG TABLET (FP) PO SCH (06:11)
[2016-12-22] MEDS: BRIMONIDINE TARTRATE 0.1% OPHTHALMIC 5 ML BOTTLE OD SCH ×3 (06:11→23:17)
[2016-12-22] MEDS: PANTOPRAZOLE SODIUM 80 MG in SODIUM CHLORIDE 100 ML IVPB SCH ×5 (06:12→23:19)
[2016-12-22 07:31] LABS: BASOPHIL 0.4 % (0-2.0); EOSINOPHIL 0.8 % (0-4.5); MCH 30.4 pg (25.7-33.7); MCHC 32.8 g/dl (32.0-36.0); MEAN CELL VOLUME 92.7 fl (80-96); MEAN PLT VOLUME 7.1 fl (7.5-11.1); NEUTROPHILS 84.4 % (42.8-82.8); PLATELET COUNT 272 K/MM3 (134-434); RDW 17.8 % (11.6-15.6); WHITE BLOOD COUNT 14.5 K/mm3 (4.0-10.0)
[2016-12-22 07:51] LABS: BILIRUBIN,TOTAL 0.3 mg/dL (0.2-1.0); TOT PROT 4.9 g/dl (6.4-8.2)
[2016-12-22 07:59] LABS: INR 1.34 (0.82-1.09); PROTHROMBIN TIME (PATIENT) 14.8 SEC (9.98-11.88)
[2016-12-22 08:02] LABS: ACTIVATED PTT 28.9 SECONDS (26.9-34.4)
--- NOTE | 2016-12-22 08:08 | EKG ---
Test Reason : Blood Pressure : / mmHG Vent. Rate : 083 BPM Atrial Rate : 081 BPM P-R Int : 000 ms QRS Dur : 122 ms QT Int : 390 ms P-R-T Axes : 000 -18 178 degrees QTc Int : 458 ms ATRIAL FIBRILLATION INFERIOR INFARCT , AGE UNDETERMINED ANTERIOR INFARCT , AGE UNDETERMINED ABNORMAL ECG NO PREVIOUS ECGS AVAILABLE Confirmed by BROOKE DIAZ MD ([id number]) on 12/22/2016 8:07:58 AM Referred By: Confirmed By:BROOKE DIAZ MD
[2016-12-22] MEDS: POTASSIUM CHLORIDE 10 MEQ in DEXTROSE 5%-0.45% SALINE 1,000 ML IVPB SCH (09:00)
--- NOTE | 2016-12-22 09:39 | PN ---
Progress Note, Physician Chief Complaint: no distress TELE: rate controlled AF History of Present Illness: denies chest pain - Current Medication List Current Medications: Active Medications Atorvastatin Calcium (Lipitor -) 80 mg PO HS [facility] Last Admin: 12/21/16 22:00 Dose: 80 mg Brimonidine Tartrate (Alphagan P 0.1% -) 1 drop OD TID [facility] Last Admin: 12/22/16 06:11 Dose: 1 drop Docusate Sodium (Colace -) 100 mg PO DAILY [facility] Last Admin: 12/21/16 10:11 Dose: Not Given Furosemide (Lasix -) 40 mg PO DAILY [facility] Last Admin: 12/21/16 10:08 Dose: Not Given Ceftriaxone Sodium (Rocephin 1gm Ivpb (Pre-Docked)) 50 mls @ 100 mls/hr IVPB DAILY [facility] Last Admin: 12/21/16 10:23 Dose: 100 mls/hr Potassium Chloride 10 meq/ (Dextrose/Sodium Chloride) 1,005 mls @ 42 mls/hr IVPB Q24H [facility] Last Admin: 12/21/16 09:52 Dose: 42 mls/hr Pantoprazole Sodium 80 mg/ (Sodium Chloride) 100 mls @ 10 mls/hr IVPB Q10H [facility] PRN Reason: 8 MG/HR Last Admin: 12/22/16 06:12 Dose: 10 mls/hr Latanoprost (Xalatan 0.005% Eye Drops -) 1 drop OD [facility] Last Admin: 12/21/16 22:19 Dose: 1 drop Levothyroxine Sodium (Synthroid -) 125 mcg PO DAILY@0700 [facility] Last Admin: 12/22/16 06:11 Dose: 125 mcg Metoprolol Tartrate (Lopressor -) 75 mg PO DAILY [facility] Last Admin: 12/21/16 10:08 Dose: Not Given Potassium Chloride (K-Dur -) 10 meq PO DAILY [facility] Last Admin: 12/21/16 10:11 Dose: 10 meq Ranolazine (Ranexa -) 500 mg PO BID [facility] Last Admin: 12/21/16 22:00 Dose: 500 mg - Objective Vital Signs: Vital Signs Temperature 97.3 F L 12/22/16 06:00 Pulse Rate 90 12/22/16 06:00 Respiratory Rate 20 12/22/16 06:00 Blood Pressure 105/49 12/22/16 06:00 O2 Sat by Pulse Oximetry (%) 97 12/21/16 11:41 Constitutional: Yes: No Distress Cardiovascular: Yes: Pulse Irregular Respiratory: Yes: Other (decreased breath sounds bases) Gastrointestinal: Yes: Soft Edema: Yes Edema: LLE: 1+, RLE: 1+ Neurological: Yes: Alert, Oriented Labs: CBC, BMP 12/22/16 05:35 12/22/16 05:35 INR, PTT INR 1.34 (0.82-1.09) H 12/22/16 05:35 Fibrinogen 328.0 mg/dL (238-498) 12/22/16 05:35 Laboratory Tests 12/20/16 12/20/16 12/20/16 19:41 19:41 22:40 WBC Hgb Hct Plt Count Creatine Kinase 38 43 Troponin I 0.67 H* 0.59 H Stool Occult Blood Positive 12/21/16 12/22/16 21:15 05:35 WBC 14.5 H Hgb 10.3 L Hct 31.2 L Plt Count 272 Creatine Kinase 43 Troponin I 0.44 H Stool Occult Blood - ....Imaging Other: Image Reviewed, Other (Echo: mildly reduced LV function, moderate MR) Assessment/Plan Chronic AF GI Bleed Systolic CHF, acute on chronic Atrial fibrillation-chronic, had been on Xarelto -now with GI bleed with significant anemia requiring 2 units PRBC -off Xarelto now 3-4 days -hold all AC -HR is currently adequately controlled -cont metoprolol as long as BP tolerates -tele monitoring for now NSTEMI-h/o CAD with prior NSTEMI, need to clarify if pt had PCI in the past -1st ekg as above, possible anterolateral ischemia, inferior and anterior infarcts -troponin elevated but not trending up 0.67--> 0.59 with normal CK level -likely demand ischemia in setting of GI bleed/anemia with known underlying CAD -hold anti-platelets and AC in setting of gi bleed - metoprolol as BP tolerates -cont statin -tele monitoring -given advanced age and significant co-morbidities (including GI bleed and DMITRY) pt unlikely to benefit from cardiac cath, would prefer to treat conservatively -when possible from a bleeding standpoint would consider starting anti-platelets -currently euvolemic, can hold lasix as BP low normal and noted to have DMITRY on labs Chronic systolic CHF- -Lasix -Repeat CXR
[2016-12-22] MEDS: METOPROLOL TARTRATE 25 MG TABLET (FP) PO SCH (10:00)
[2016-12-22] MEDS: DOCUSATE SODIUM 100 MG CAPSULE (FP) PO SCH (10:35)
[2016-12-22] MEDS: RANOLAZINE E.R. 500 MG TABLET (FP) PO SCH ×2 (10:35→23:17)
[2016-12-22] MEDS: POTASSIUM CHLORIDE TABS 10 MEQ TABLET.ER (FP) PO SCH (10:35)
[2016-12-22] MEDS: CEFTRIAXONE 50 ML IVPB SCH (10:37)
[2016-12-22] MEDS: FUROSEMIDE 40 MG TABLET (FP) PO SCH (11:06)
--- NOTE | 2016-12-22 11:59 | PN ---
Progress Note, Physician Chief Complaint: NAD, no new complaints. Melena stopped Consults GI, Heme , cardiology appreciated. History of Present Illness: S/P ME-NSTENMI. UTI CAD. Angina. Chronic AFIB.Diastolic CHF PAD, B/L LE Bypass sx Hypothyroidism E.Coli infection HTN Hx TB Pressure sore Muscle weakness Cystectomy. - Current Medication List Current Medications: Active Medications Atorvastatin Calcium (Lipitor -) 80 mg PO HS [facility] Last Admin: 12/21/16 22:00 Dose: 80 mg Brimonidine Tartrate (Alphagan P 0.1% -) 1 drop OD TID [facility] Last Admin: 12/22/16 06:11 Dose: 1 drop Docusate Sodium (Colace -) 100 mg PO DAILY [facility] Last Admin: 12/22/16 10:35 Dose: 100 mg Furosemide (Lasix -) 40 mg PO DAILY [facility] Last Admin: 12/22/16 11:06 Dose: 40 mg Ceftriaxone Sodium (Rocephin 1gm Ivpb (Pre-Docked)) 50 mls @ 100 mls/hr IVPB DAILY [facility] Last Admin: 12/22/16 10:37 Dose: 100 mls/hr Potassium Chloride 10 meq/ (Dextrose/Sodium Chloride) 1,005 mls @ 42 mls/hr IVPB Q24H [facility] Last Admin: 12/22/16 09:00 Dose: 42 mls/hr Pantoprazole Sodium 80 mg/ (Sodium Chloride) 100 mls @ 10 mls/hr IVPB Q10H [facility] PRN Reason: 8 MG/HR Last Admin: 12/22/16 08:00 Dose: 10 mls/hr Latanoprost (Xalatan 0.005% Eye Drops -) 1 drop OD HS [facility] Last Admin: 12/21/16 22:19 Dose: 1 drop Levothyroxine Sodium (Synthroid -) 125 mcg PO DAILY@0700 [facility] Last Admin: 12/22/16 06:11 Dose: 125 mcg Metoprolol Tartrate (Lopressor -) 75 mg PO DAILY [facility] Last Admin: 12/21/16 10:08 Dose: Not Given Potassium Chloride (K-Dur -) 10 meq PO DAILY [facility] Last Admin: 12/22/16 10:35 Dose: 10 meq Ranolazine (Ranexa -) 500 mg PO BID [facility] Last Admin: 12/22/16 10:35 Dose: 500 mg Silver Sulfadiazine (Silvadene -) 1 applic TP DAILY [facility] - Objective Vital Signs: Vital Signs Temperature 97.3 F L 12/22/16 06:00 Pulse Rate 90 12/22/16 06:00 Respiratory Rate 20 12/22/16 06:00 Blood Pressure 105/49 12/22/16 06:00 O2 Sat by Pulse Oximetry (%) 97 12/21/16 11:41 Constitutional: Yes: No Distress, Calm, Other (Acrocyanosis) Eyes: Yes: Conjunctiva Clear, EOM Intact HENT: Yes: Atraumatic, Normocephalic. No: Drooling Neck: Yes: Decreased ROM, Rigid Cardiovascular: Yes: Pulse Irregular, Murmur, S1, S2 Respiratory: Yes: Regular, Rales Gastrointestinal: Yes: Normal Bowel Sounds, Soft ...Rectal Exam: Yes: Deferred Edema: No Peripheral Pulses WNL: No Integumentary: Yes: Pressure Ulcer Neurological: Yes: Alert, Oriented ...Motor Strength: WNL Psychiatric: Yes: WNL Labs: CBC, BMP 12/22/16 05:35 12/22/16 05:35 INR, PTT INR 1.34 (0.82-1.09) H 12/22/16 05:35 Fibrinogen 328.0 mg/dL (238-498) 12/22/16 05:35 Laboratory Results - last 24 hr 12/20/16 12/21/16 12/22/16 09:00 21:15 05:35 WBC 14.5 H RBC 3.37 L Hgb 10.3 L Hct 31.2 L MCV 92.7 MCHC 32.8 RDW 17.8 H Plt Count 272 MPV 7.1 L Neutrophils % 84.4 H Lymphocytes % 8.1 D Monocytes % 6.3 Eosinophils % 0.8 D Basophils % 0.4 INR PTT (Actin FS) Fibrinogen Sodium Potassium Chloride Carbon Dioxide Anion Gap BUN Creatinine Creat Clearance w eGFR Random Glucose Calcium Ferritin Total Bilirubin AST ALT Alkaline Phosphatase Creatine Kinase 43 Troponin I 0.44 H Total Protein Albumin Vitamin B12 Free T3 1.8 L 12/22/16 12/22/16 12/22/16 05:35 05:35 05:35 WBC RBC Hgb Hct MCV MCHC RDW Plt Count MPV Neutrophils % Lymphocytes % Monocytes % Eosinophils % Basophils % INR 1.34 H PTT (Actin FS) 28.9 Fibrinogen 328.0 Sodium 142 Potassium 3.3 L Chloride 106 Carbon Dioxide 24 Anion Gap 12 BUN 60 H Creatinine 1.0 Creat Clearance w eGFR 52.20 Random Glucose 92 Calcium 8.0 L Ferritin 128.379 Total Bilirubin 0.3 D AST 12 L ALT 14 Alkaline Phosphatase 56 Creatine Kinase Troponin I Total Protein 4.9 L Albumin 2.0 L Vitamin B12 1897 H Free T3 Problem List - Problems (1) Anemia Assessment/Plan: PRBC TX Follow H/H-received 2 units H/H improved/stable Code(s): D64.9 - ANEMIA, UNSPECIFIED Qualifiers: Anemia type: other cause Other causes of anemia: acute posthemorrhagic Qualified Code(s): D62 - Acute posthemorrhagic anemia (2) Atrial fibrillation, chronic Assessment/Plan: D/C A/C Control V-Rate Code(s): I48.2 - CHRONIC ATRIAL FIBRILLATION (3) GI bleeding Assessment/Plan: Probably UGI. GI f/u Protonix IV Pending UGI/Colonoscopy Code(s): K92.2 - GASTROINTESTINAL HEMORRHAGE, UNSPECIFIED Qualifiers: GI bleed type/associated pathology: anorectal hemorrhage Qualified Code (s): K62.5 - Hemorrhage of anus and rectum (4) NSTEMI (non-ST elevated myocardial infarction) Assessment/Plan: Follow Trop I-positive, EKG noted Cardiology Continue BAB Hold Aspirin, a/c 2 GI bleed Code(s): I21.4 - NON-ST ELEVATION (NSTEMI) MYOCARDIAL INFARCTION (5) Acute renal insufficiency Assessment/Plan: Elevated BUN and increased BUN/Creat-probably due to acute GI bleed. Code(s): N28.9 - DISORDER OF KIDNEY AND URETER, UNSPECIFIED (6) UTI (urinary tract infection) Assessment/Plan: UTI, R/o sepsis, Hypothermia, elevated WBC, lactic-p Bld Cx, Ua cx, IV ABX Code(s): N39.0 - URINARY TRACT INFECTION, SITE NOT SPECIFIED Qualifiers: Urinary tract infection type: site unspecified (7) Hypokalemia Assessment/Plan: Replete K Code(s): E87.6 - HYPOKALEMIA
[2016-12-22] MEDS ORDERED: POTASSIUM CHLORIDE ORAL LIQUID 20 MEQ/15 ML PO ONE (12:10)
--- NOTE | 2016-12-22 17:38 | EKG ---
Test Reason : Blood Pressure : / mmHG Vent. Rate : 082 BPM Atrial Rate : 085 BPM P-R Int : 000 ms QRS Dur : 122 ms QT Int : 418 ms P-R-T Axes : 000 -09 171 degrees QTc Int : 488 ms ATRIAL FIBRILLATION INFERIOR INFARCT (CITED ON OR BEFORE 20-DEC-2016) ABNORMAL ECG WHEN COMPARED WITH ECG OF 21-DEC-2016 09:16, NO SIGNIFICANT CHANGE WAS FOUND Confirmed by YOHAN SINGH, TEA ([id number]) on 12/22/2016 5:38:21 PM Referred By: OSIEL ALBERTO Confirmed By:TEA ALMANZAR MD
--- NOTE | 2016-12-22 17:40 | EKG ---
Test Reason : Blood Pressure : / mmHG Vent. Rate : 075 BPM Atrial Rate : 047 BPM P-R Int : 000 ms QRS Dur : 120 ms QT Int : 432 ms P-R-T Axes : 000 -14 198 degrees QTc Int : 482 ms ATRIAL FIBRILLATION WITH A COMPETING JUNCTIONAL PACEMAKER INFERIOR INFARCT (CITED ON OR BEFORE 20-DEC-2016) ABNORMAL ECG WHEN COMPARED WITH ECG OF 20-DEC-2016 18:58, NO SIGNIFICANT CHANGE WAS FOUND Confirmed by YOHAN SINGH, TEA ([id number]) on 12/22/2016 5:40:13 PM Referred By: Confirmed By:TEA ALMANZAR MD
--- NOTE | 2016-12-22 18:30 | PN ---
GI Progress Note Subjective: No acute events No abdominal pain No overt bleeding reported On PPI drip - Objective Vital Signs: Vital Signs Temperature 97.5 F L 12/22/16 15:00 Pulse Rate 78 12/22/16 15:00 Respiratory Rate 18 12/22/16 15:00 Blood Pressure 94/64 12/22/16 15:00 O2 Sat by Pulse Oximetry (%) 97 12/21/16 11:41 Constitutional: Calm Eyes: No: Sclera Icterus Cardiovascular: Yes: Regular Rate and Rhythm Respiratory: No: Diminished (bases w/ poor insp effort) ...Auscultate: Yes: Normoactive Bowel Sounds ...Palpate: No: Tenderness Neurological: Yes: Alert, Oriented Labs: CBC, BMP 12/22/16 05:35 12/22/16 05:35 INR, PTT INR 1.34 (0.82-1.09) H 12/22/16 05:35 Fibrinogen 328.0 mg/dL (238-498) 12/22/16 05:35 Problem List - Problems (1) GI bleeding Assessment/Plan: Plan was for possible EGD when feasible from cardiac standpoint. I discussed this with Sr. Castro and discussed potential risks of the procedure like but njot limited to bleeding, perforation requiring surgery to repair, infection and sedation medication effects all of which could be potentially life threatening. She told me that she wasn't even sure if she wanted to have it performed and asked that I speak to her superior SrYoselin Newton . I called and left a message. Continue PPI drip, monitor magnesium levels Clear liquids Code(s): K92.2 - GASTROINTESTINAL HEMORRHAGE, UNSPECIFIED Qualifiers: GI bleed type/associated pathology: anorectal hemorrhage Qualified Code (s): K62.5 - Hemorrhage of anus and rectum
[2016-12-22] MEDS: ATORVASTATIN CA 80 MG TABLET (FP) PO SCH (23:17)
[2016-12-22] MEDS: LATANOPROST 0.005% OPHTH SOLN 2.5ML BOTTLE OD SCH (23:17)
[2016-12-23] MEDS: BRIMONIDINE TARTRATE 0.1% OPHTHALMIC 5 ML BOTTLE OD SCH ×3 (06:08→21:15)
[2016-12-23] MEDS: LEVOTHYROXINE NA 125 MCG TABLET (FP) PO SCH (06:08)
[2016-12-23] MEDS: PANTOPRAZOLE SODIUM 80 MG in SODIUM CHLORIDE 100 ML IVPB SCH ×2 (06:08→10:17)
[2016-12-23 06:50] LABS: BASOPHIL 0.3 % (0-2.0); EOSINOPHIL 0.5 % (0-4.5); MCH 30.7 pg (25.7-33.7); MCHC 32.9 g/dl (32.0-36.0); MEAN CELL VOLUME 93.3 fl (80-96); MEAN PLT VOLUME 6.9 fl (7.5-11.1); PLATELET COUNT 252 K/MM3 (134-434); RDW 17.7 % (11.6-15.6); WHITE BLOOD COUNT 15.2 K/mm3 (4.0-10.0)
[2016-12-23] MEDS ORDERED: PT OWN MED DRAWER 7, Y5N ONE ×4 (07:02→23:50)
[2016-12-23 07:05] LABS: ALBUMIN 1.9 g/dl (3.4-5.0)
[2016-12-23 07:06] LABS: BILIRUBIN,TOTAL 0.4 mg/dL (0.2-1.0)
--- NOTE | 2016-12-23 07:40 | PN ---
Progress Note, Physician Chief Complaint: Comfortable in bed, no distress. Dr Viramontes f/u appreciated. Awaiting decision re endoscopy. Off A/C History of Present Illness: S/P [facility]-NSTENMI. UTI CAD. Angina. Chronic AFIB.Diastolic CHF PAD, B/L LE Bypass sx Hypothyroidism E.Coli infection HTN Hx TB Pressure sore Muscle weakness Cystectomy. - Current Medication List Current Medications: Active Medications Atorvastatin Calcium (Lipitor -) 80 mg PO HS [facility] Last Admin: 12/22/16 23:17 Dose: 80 mg Brimonidine Tartrate (Alphagan P 0.1% -) 1 drop OD TID [facility] Last Admin: 12/23/16 06:08 Dose: 1 drop Docusate Sodium (Colace -) 100 mg PO DAILY [facility] Last Admin: 12/22/16 10:35 Dose: 100 mg Furosemide (Lasix -) 40 mg PO DAILY [facility] Last Admin: 12/22/16 11:06 Dose: 40 mg Ceftriaxone Sodium (Rocephin 1gm Ivpb (Pre-Docked)) 50 mls @ 100 mls/hr IVPB DAILY [facility] Last Admin: 12/22/16 10:37 Dose: 100 mls/hr Potassium Chloride 10 meq/ (Dextrose/Sodium Chloride) 1,005 mls @ 42 mls/hr IVPB Q24H [facility] Last Admin: 12/22/16 09:00 Dose: 42 mls/hr Pantoprazole Sodium 80 mg/ (Sodium Chloride) 100 mls @ 10 mls/hr IVPB Q10H [facility] PRN Reason: 8 MG/HR Last Admin: 12/23/16 06:08 Dose: Not Given Latanoprost (Xalatan 0.005% Eye Drops -) 1 drop OD HS [facility] Last Admin: 12/22/16 23:17 Dose: 1 drop Levothyroxine Sodium (Synthroid -) 125 mcg PO DAILY@0700 [facility] Last Admin: 12/23/16 06:08 Dose: 125 mcg Metoprolol Tartrate (Lopressor -) 75 mg PO DAILY [facility] Last Admin: 12/22/16 10:00 Dose: Not Given Potassium Chloride (K-Dur -) 10 meq PO DAILY [facility] Last Admin: 12/22/16 10:35 Dose: 10 meq Ranolazine (Ranexa -) 500 mg PO BID [facility] Last Admin: 12/22/16 23:17 Dose: 500 mg Silver Sulfadiazine (Silvadene -) 1 applic TP DAILY [facility] - Objective Vital Signs: Vital Signs Temperature 97.7 F 12/23/16 06:00 Pulse Rate 86 12/23/16 06:00 Respiratory Rate 16 12/23/16 06:00 Blood Pressure 111/60 12/23/16 06:00 O2 Sat by Pulse Oximetry (%) 97 12/21/16 11:41 Constitutional: Yes: Calm. No: No Distress, Anxious, Diaphoresis Eyes: Yes: Conjunctiva Clear, EOM Intact HENT: Yes: Atraumatic, Normocephalic Neck: Yes: Trachea Midline, Decreased ROM. No: Lymphadenopathy, Thyromegaly Cardiovascular: Yes: Pulse Irregular, Murmur, S1, S2 Respiratory: Yes: Regular, Rhonchi Gastrointestinal: Yes: Normal Bowel Sounds, Soft. No: Abdomen, Obese, Ascites, Palpable Mass ...Rectal Exam: Yes: Deferred Genitourinary: No: Anuria, Bladder Distention Musculoskeletal: Yes: Muscle Weakness Extremities: No: Calf Tenderness, Cold, Cyanosis Edema: LLE: Trace, RLE: Trace Integumentary: Yes: Pressure Ulcer (sacrum small, clean) Neurological: Yes: Alert, Oriented ...Motor Strength: WNL Psychiatric: Yes: WNL Additional Findings/Remarks: Laboratory Results - last 24 hr 12/22/16 12/22/16 12/22/16 05:35 05:35 05:35 WBC 14.5 H RBC 3.37 L Hgb 10.3 L Hct 31.2 L MCV 92.7 MCHC 32.8 RDW 17.8 H Plt Count 272 MPV 7.1 L Neutrophils % 84.4 H Lymphocytes % 8.1 D Monocytes % 6.3 Eosinophils % 0.8 D Basophils % 0.4 INR 1.34 H PTT (Actin FS) 28.9 Fibrinogen 328.0 Sodium 142 Potassium 3.3 L Chloride 106 Carbon Dioxide 24 Anion Gap 12 BUN 60 H Creatinine 1.0 Creat Clearance w eGFR 52.20 Random Glucose 92 Calcium 8.0 L Ferritin Total Bilirubin 0.3 D AST 12 L ALT 14 Alkaline Phosphatase 56 Total Protein 4.9 L Albumin 2.0 L Vitamin B12 1897 H 12/22/16 12/22/16 12/23/16 05:35 05:35 05:35 WBC RBC Hgb Hct MCV MCHC RDW Plt Count MPV Neutrophils % Lymphocytes % Monocytes % Eosinophils % Basophils % INR PTT (Actin FS) Fibrinogen Sodium 139 Potassium 4.0 D Chloride 104 Carbon Dioxide 26 Anion Gap 9 BUN 53 H Creatinine 1.0 Creat Clearance w eGFR 52.20 Random Glucose 88 Calcium 8.0 L Ferritin 128.379 Total Bilirubin 0.4 D AST 20 D ALT 17 D Alkaline Phosphatase 56 Total Protein 5.0 L Albumin 1.9 L Vitamin B12 1906 H Labs: CBC, BMP 12/23/16 05:35 INR, PTT INR 1.34 (0.82-1.09) H 12/22/16 05:35 Fibrinogen 328.0 mg/dL (238-498) 12/22/16 05:35 Problem List - Problems (1) Anemia Assessment/Plan: PRBC TX Follow H/H-received 2 units H/H improved/stable Code(s): D64.9 - ANEMIA, UNSPECIFIED Qualifiers: Anemia type: other cause Other causes of anemia: acute posthemorrhagic Qualified Code(s): D62 - Acute posthemorrhagic anemia (2) Atrial fibrillation, chronic Assessment/Plan: OFF A/C Will re-start Coumadin after endoscopy as per GI without ASA Control V-Rate Code(s): I48.2 - CHRONIC ATRIAL FIBRILLATION (3) GI bleeding Assessment/Plan: Probably UGI. GI f/u Protonix IV Pending UGI/Colonoscopy Code(s): K92.2 - GASTROINTESTINAL HEMORRHAGE, UNSPECIFIED Qualifiers: GI bleed type/associated pathology: anorectal hemorrhage Qualified Code (s): K62.5 - Hemorrhage of anus and rectum (4) NSTEMI (non-ST elevated myocardial infarction) Assessment/Plan: Follow Trop I-positive, EKG noted Cardiology Continue BAB Hold Aspirin, a/c 2 GI bleed Code(s): I21.4 - NON-ST ELEVATION (NSTEMI) MYOCARDIAL INFARCTION (5) Acute renal insufficiency Assessment/Plan: Elevated BUN and increased BUN/Creat-probably due to acute GI bleed. Improving BUN/Creat Code(s): N28.9 - DISORDER OF KIDNEY AND URETER, UNSPECIFIED (6) UTI (urinary tract infection) Assessment/Plan: Blood Cx-neg Will d/c Ceftriaxone. Code(s): N39.0 - URINARY TRACT INFECTION, SITE NOT SPECIFIED Qualifiers: Urinary tract infection type: site unspecified (7) Hypokalemia Assessment/Plan: Replete K PRN Code(s): E87.6 - HYPOKALEMIA
--- NOTE | 2016-12-23 09:28 | PN ---
Progress Note, Physician Chief Complaint: no distress, sleeping - Current Medication List Current Medications: Active Medications Atorvastatin Calcium (Lipitor -) [address] [facility] Last Admin: 12/22/16 23:17 Dose: 80 mg Brimonidine Tartrate (Alphagan P 0.1% -) [address] [facility] Last Admin: 12/23/16 06:08 Dose: 1 drop Docusate Sodium (Colace -) [address] [facility] Last Admin: 12/22/16 10:35 Dose: 100 mg Furosemide (Lasix -) [address] [facility] Last Admin: 12/22/16 11:06 Dose: 40 mg Potassium Chloride 10 meq/ (Dextrose/Sodium Chloride) 1,005 mls @ 42 mls/hr IVPB Q24H [facility] Last Admin: 12/22/16 09:00 Dose: 42 mls/hr Pantoprazole Sodium 80 mg/ (Sodium Chloride) 100 mls @ 10 mls/hr IVPB Q10H [facility] PRN Reason: 8 MG/HR Last Admin: 12/23/16 06:08 Dose: Not Given Latanoprost (Xalatan 0.005% Eye Drops -) [address] [facility] Last Admin: 12/22/16 23:17 Dose: 1 drop Levothyroxine Sodium (Synthroid -) 125 mcg PO DAILY@0700 [facility] Last Admin: 12/23/16 06:08 Dose: 125 mcg Metoprolol Tartrate (Lopressor -) [address] [facility] Last Admin: 12/22/16 10:00 Dose: Not Given Potassium Chloride (K-Dur -) [address] [facility] Last Admin: 12/22/16 10:35 Dose: 10 meq Ranolazine (Ranexa -) [address] [facility] Last Admin: 12/22/16 23:17 Dose: 500 mg Silver Sulfadiazine (Silvadene -) [address] [facility] - Objective Vital Signs: Vital Signs Temperature 97.7 F 12/23/16 06:00 Pulse Rate 86 12/23/16 06:00 Respiratory Rate 16 12/23/16 06:00 Blood Pressure 111/60 12/23/16 06:00 O2 Sat by Pulse Oximetry (%) 97 12/21/16 11:41 Constitutional: Yes: No Distress Eyes: Yes: Conjunctiva Clear Cardiovascular: Yes: Pulse Irregular Respiratory: Yes: Other (slight decreased breath sounds at bases) Gastrointestinal: Yes: Soft Edema: Yes Edema: LLE: 1+, RLE: 1+ Neurological: Yes: Alert Labs: CBC, BMP 12/23/16 05:35 12/23/16 05:35 INR, PTT INR 1.34 (0.82-1.09) H 12/22/16 05:35 Fibrinogen 328.0 mg/dL (238-498) 12/22/16 05:35 Laboratory Tests 12/21/16 12/23/16 12/23/16 21:15 05:35 05:35 WBC 15.2 H Hgb 10.4 L Plt Count 252 Sodium 139 Potassium 4.0 D BUN 53 H Creatinine 1.0 Creatine Kinase 43 Troponin I 0.44 H - ....Imaging EKG: Image Reviewed (Rate controlled AF) Assessment/Plan Assessment/Plan Chronic AF GI Bleed Systolic CHF, acute on chronic Atrial fibrillation-chronic, had been on Xarelto -now with GI bleed with significant anemia requiring 2 units PRBC -off Xarelto now 3-4 days -hold all AC until source bleeding found -HR is currently adequately controlled -cont metoprolol as long as BP tolerates -tele monitoring for now NSTEMI-h/o CAD with prior NSTEMI, need to clarify if pt had PCI in the past -1st ekg as above, possible anterolateral ischemia, inferior and anterior infarcts -troponin elevated but not trending up 0.67--> 0.59 with normal CK level -likely demand ischemia in setting of GI bleed/anemia with known underlying CAD -hold anti-platelets and AC in setting of gi bleed - metoprolol as BP tolerates -cont statin -tele monitoring -given advanced age and significant co-morbidities (including GI bleed and DMITRY) pt unlikely to benefit from cardiac cath, would prefer to treat conservatively -when possible from a bleeding standpoint would consider starting anti-platelets -currently euvolemic, can hold lasix as BP low normal and noted to have DMITRY on labs Chronic systolic CHF- -cont lasix
[2016-12-23] MEDS: POTASSIUM CHLORIDE 10 MEQ in DEXTROSE 5%-0.45% SALINE 1,000 ML IVPB SCH ×2 (10:08→15:52)
[2016-12-23] MEDS: FUROSEMIDE 40 MG TABLET (FP) PO SCH (10:12)
[2016-12-23] MEDS: METOPROLOL TARTRATE 25 MG TABLET (FP) PO SCH (10:12)
[2016-12-23] MEDS: POTASSIUM CHLORIDE TABS 10 MEQ TABLET.ER (FP) PO SCH (10:12)
[2016-12-23] MEDS: DOCUSATE SODIUM 100 MG CAPSULE (FP) PO SCH (10:12)
[2016-12-23] MEDS: RANOLAZINE E.R. 500 MG TABLET (FP) PO SCH ×2 (10:13→21:14)
[2016-12-23 10:19] LABS: HEMATOCRIT 31.9 % (34.0-46.6)
--- NOTE | 2016-12-23 12:25 | PN ---
GI Progress Note Subjective: GI NOte: Bleeding appears to have subsided. Sister is unwilling to consent to any endoscopies without the input of her Threading Machine Setter/ She denies abdominal pain. - Objective Vital Signs: Vital Signs Temperature 97.3 F L 12/23/16 10:22 Pulse Rate 66 12/23/16 11:53 Respiratory Rate 20 12/23/16 10:22 Blood Pressure 120/66 12/23/16 10:22 O2 Sat by Pulse Oximetry (%) 97 12/23/16 11:53 CBC,CMP WBC 15.2 K/mm3 (4.0-10.0) H 12/23/16 05:35 Corrected WBC (auto) Cancelled 12/21/16 09:40 RBC 3.38 M/mm3 (3.60-5.2) L 12/23/16 05:35 Hgb 10.4 GM/dL (10.7-15.3) L 12/23/16 05:35 Hct 31.5 % (32.4-45.2) L 12/23/16 05:35 MCV 93.3 fl (80-96) 12/23/16 05:35 MCHC 32.9 g/dl (32.0-36.0) 12/23/16 05:35 RDW 17.7 % (11.6-15.6) H 12/23/16 05:35 Plt Count 252 K/MM3 (134-434) 12/23/16 05:35 MPV 6.9 fl (7.5-11.1) L 12/23/16 05:35 Neutrophils % 86.0 % (42.8-82.8) H 12/23/16 05:35 Lymphocytes % 6.9 % (8-40) L 12/23/16 05:35 Monocytes % 6.3 % (3.8-10.2) 12/23/16 05:35 Eosinophils % 0.5 % (0-4.5) 12/23/16 05:35 Basophils % 0.3 % (0-2.0) 12/23/16 05:35 Differential Comment Cancelled 12/21/16 09:40 Smudge Cells Cancelled 12/21/16 09:40 Platelet Estimate Cancelled 12/21/16 09:40 Platelet Comment Cancelled 12/21/16 09:40 Platelet Comment Cancelled 12/21/16 09:40 RBC Morphology Cancelled 12/21/16 09:40 Sodium 139 mmol/L (136-145) 12/23/16 05:35 Potassium 4.0 mmol/L (3.5-5.1) D 12/23/16 05:35 Chloride 104 mmol/L (98-107) 12/23/16 05:35 Carbon Dioxide 26 mmol/L (21-32) 12/23/16 05:35 Anion Gap 9 (8-16) 12/23/16 05:35 BUN 53 mg/dL (7-18) H 12/23/16 05:35 Creatinine 1.0 mg/dL (0.55-1.02) 12/23/16 05:35 Creat Clearance w eGFR 52.20 (>60) 12/23/16 05:35 Random Glucose 88 mg/dL (74-106) 12/23/16 05:35 Hemoglobin A1c % 4.6 % (4.8-6.0) L 12/21/16 09:40 Lactic Acid 2.998 mmol/L (0.4-2.0) H* 12/21/16 09:40 Calcium 8.0 mg/dL (8.5-10.1) L 12/23/16 05:35 Phosphorus 4.5 mg/dL (2.5-4.9) 12/21/16 09:40 Magnesium 2.0 mg/dL (1.8-2.4) 12/21/16 09:40 Iron 27 ug/dL (27-139) 12/22/16 05:35 TIBC 166 ug/dL (250-450) L 12/22/16 05:35 Iron Saturation 16 % (15-55) 12/22/16 05:35 Ferritin 128.379 ng/ml (6.9-282.5) 12/22/16 05:35 Total Bilirubin 0.4 mg/dL (0.2-1.0) D 12/23/16 05:35 AST 20 U/L (15-37) D 12/23/16 05:35 ALT 17 U/L (12-78) D 12/23/16 05:35 Alkaline Phosphatase 56 U/L (45-117) 12/23/16 05:35 Creatine Kinase 43 IU/L (26-192) 12/21/16 21:15 Troponin I 0.44 ng/ml (0.00-0.05) H 12/21/16 21:15 Total Protein 5.0 g/dl (6.4-8.2) L 12/23/16 05:35 Albumin 1.9 g/dl (3.4-5.0) L 12/23/16 05:35 Vitamin B12 1906 pg/ml (180-914) H 12/22/16 05:35 Folate 1266 ng/mL (>498) 12/22/16 05:35 Folate Hemolysate 403.9 ng/mL (Not Estab.) 12/22/16 05:35 TSH 0.40 uIU/ml (0.358-3.74) 12/21/16 09:40 Free T3 1.8 pg/ml (2.0-4.4) L 12/20/16 09:00 Current Medications Generic Name Dose Route Start Last Admin Trade Name Freq PRN Reason Stop Dose Admin Atorvastatin Calcium 80 mg 12/20/16 22:00 12/22/16 23:17 Lipitor - PO 80 mg HS [facility] Administration Brimonidine Tartrate 1 drop 12/20/16 22:00 12/23/16 06:08 Alphagan P 0.1% - OD 1 drop TID [facility] Administration Docusate Sodium 100 mg 12/21/16 10:00 12/23/16 10:12 Colace - PO 100 mg DAILY [facility] Administration Furosemide 40 mg 12/21/16 10:00 12/23/16 10:12 Lasix - PO 40 mg DAILY [facility] Administration Potassium Chloride 10 meq/ 1,005 mls @ 42 mls/hr 12/21/16 09:09 12/23/16 10:08 Dextrose/Sodium Chloride IVPB Not Given Q24H [facility] Pantoprazole Sodium 80 mg/ 100 mls @ 10 mls/hr 12/21/16 12:45 12/23/16 10:17 Sodium Chloride IVPB 10 mls/hr Q10H [facility] Administration 8 MG/HR Latanoprost 1 drop 12/20/16 22:00 12/22/16 23:17 Xalatan 0.005% Eye Drops - OD 1 drop HS [facility] Administration Levothyroxine Sodium 125 mcg 12/21/16 07:00 12/23/16 06:08 Synthroid - PO 125 mcg DAILY@0700 [facility] Administration Metoprolol Tartrate 75 mg 12/21/16 10:00 12/23/16 10:12 Lopressor - PO 75 mg DAILY [facility] Administration Potassium Chloride 10 meq 12/21/16 10:00 12/23/16 10:12 K-Dur - PO 10 meq DAILY [facility] Administration Ranolazine 500 mg 12/20/16 22:00 12/23/16 10:13 Ranexa - PO 500 mg BID [facility] Administration Silver Sulfadiazine 1 applic 12/23/16 10:00 Silvadene - TP DAILY [facility] Constitutional: No Distress ...Auscultate: Yes: Hyperactive Bowel Sounds ...Palpate: Yes: Soft, Other (nontender) Labs: CBC, BMP 12/23/16 05:35 12/23/16 05:35 INR, PTT INR 1.34 (0.82-1.09) H 12/22/16 05:35 Fibrinogen 328.0 mg/dL (238-498) 12/22/16 05:35 Laboratory Tests 12/20/16 12/22/16 12/23/16 19:41 05:35 05:35 WBC 15.2 H Hgb 7.9 L 10.3 L 10.4 L BUN Creatinine Total Bilirubin AST ALT Alkaline Phosphatase Albumin 12/23/16 05:35 WBC Hgb BUN 53 H Creatinine 1.0 Total Bilirubin 0.4 D AST 20 D ALT 17 D Alkaline Phosphatase 56 Albumin 1.9 L Assessment/Plan GI bleed appears to have resolved. Suspect UGI source. Await cardiology clearance and consents before scheduling endoscopies. Dr Burrows's note is appreciated. await return call form the Threading Machine Setter. Will switch to po PPI and start solid diet.
[2016-12-23] MEDS: PANTOPRAZOLE 40 MG TABLET (FP) PO SCH ×2 (14:53→21:15)
[2016-12-23] MEDS: SILVER SULFADIAZINE 1% TOP CREAM 50 GM JAR TP SCH (17:29)
--- NOTE | 2016-12-23 18:41 | PN ---
Progress Note (short form) - Note Progress Note: Had d/w Sr. Julien. She would Like Sr. Castro to proceed with EGD. We reviewed potential risks of the procedure like but not limited to bleeding, perforation requiring surgery to repair, infection,sedation medication effects all of which could be potentially life threatening. Her DNR status during procedure will need to be clarified Await clearance from Dr. Burrows. Left message Problem List - Problems (1) GI bleeding Code(s): K92.2 - GASTROINTESTINAL HEMORRHAGE, UNSPECIFIED Qualifiers: GI bleed type/associated pathology: anorectal hemorrhage Qualified Code (s): K62.5 - Hemorrhage of anus and rectum
[2016-12-23] MEDS: ATORVASTATIN CA 80 MG TABLET (FP) PO SCH (21:15)
[2016-12-23] MEDS: LATANOPROST 0.005% OPHTH SOLN 2.5ML BOTTLE OD SCH (21:16)
[2016-12-24] MEDS: BRIMONIDINE TARTRATE 0.1% OPHTHALMIC 5 ML BOTTLE OD SCH ×3 (05:39→21:22)
[2016-12-24] MEDS: LEVOTHYROXINE NA 125 MCG TABLET (FP) PO SCH (06:28)
[2016-12-24 07:00] LABS: MCH 30.4 pg (25.7-33.7); MCHC 32.6 g/dl (32.0-36.0); MEAN CELL VOLUME 93.5 fl (80-96); MEAN PLT VOLUME 6.6 fl (7.5-11.1); PLATELET COUNT 243 K/MM3 (134-434); RDW 17.9 % (11.6-15.6)
--- NOTE | 2016-12-24 07:42 | PN ---
Progress Note (short form) - Note Progress Note: Dr Villalba consult appreciated. Sr Newton agrees with EGD. Monitor-Chronic A,fib Vital Signs (72 hours) 12/21/16 12/21/16 12/21/16 08:23 11:00 11:41 Temperature 96.9 F L Pulse Rate 68 Pulse Rate [ 72 73 Left] Respiratory 20 21 18 Rate Blood Pressure 92/49 Blood Pressure 97/46 101/38 [Arm] O2 Sat by Pulse 97 97 Oximetry (%) 12/21/16 12/21/16 12/21/16 13:00 15:37 18:35 Temperature 98.2 F 98.2 F 98.2 F Pulse Rate 72 85 Pulse Rate [ Left] Respiratory 20 18 Rate Blood Pressure 94/50 105/61 Blood Pressure [Arm] O2 Sat by Pulse Oximetry (%) 12/21/16 12/22/16 12/22/16 23:06 02:00 06:00 Temperature 98.2 F 97.8 F 97.3 F L Pulse Rate 89 90 90 Pulse Rate [ Left] Respiratory 16 20 20 Rate Blood Pressure 101/51 96/43 105/49 Blood Pressure [Arm] O2 Sat by Pulse Oximetry (%) 12/22/16 12/22/16 12/22/16 15:00 18:25 23:15 Temperature 97.5 F L 97.8 F 97.6 F Pulse Rate 78 75 83 Pulse Rate [ Left] Respiratory 18 18 16 Rate Blood Pressure 94/64 95/50 114/62 Blood Pressure [Arm] O2 Sat by Pulse Oximetry (%) 12/23/16 12/23/16 12/23/16 02:00 06:00 10:22 Temperature 97.5 F L 97.7 F 97.3 F L Pulse Rate 95 H 86 93 H Pulse Rate [ Left] Respiratory 16 16 20 Rate Blood Pressure 121/89 111/60 120/66 Blood Pressure [Arm] O2 Sat by Pulse Oximetry (%) 12/23/16 12/23/16 12/23/16 11:53 15:27 18:04 Temperature 97.3 F L 98.1 F Pulse Rate 66 81 81 Pulse Rate [ Left] Respiratory 20 20 Rate Blood Pressure 114/56 96/41 Blood Pressure [Arm] O2 Sat by Pulse 97 Oximetry (%) 12/23/16 12/24/16 12/24/16 22:00 01:57 06:00 Temperature 98.2 F 97.5 F L 97.5 F L Pulse Rate 78 89 85 Pulse Rate [ Left] Respiratory 20 20 20 Rate Blood Pressure 101/41 111/47 118/59 Blood Pressure [Arm] O2 Sat by Pulse Oximetry (%) Awake, alert. no CP Acrocyanosis. Laboratory Results - last 24 hr 12/20/16 12/22/16 12/23/16 19:41 05:35 05:35 WBC 15.2 H RBC 3.38 L Hgb 10.4 L Hct 31.9 L 31.5 L MCV 93.3 MCHC 32.9 RDW 17.7 H Plt Count 252 MPV 6.9 L Neutrophils % 86.0 H Lymphocytes % 6.9 L Monocytes % 6.3 Eosinophils % 0.5 Basophils % 0.3 Iron 27 TIBC 166 L Iron Saturation 16 Folate 1266 Folate Hemolysate 403.9 Blood Type A POSITIVE Antibody Screen Negative Crossmatch See Detail 12/24/16 05:35 WBC 13.0 H RBC 3.37 L Hgb 10.3 L Hct 31.5 L MCV 93.5 MCHC 32.6 RDW 17.9 H Plt Count 243 MPV 6.6 L Neutrophils % Lymphocytes % Monocytes % Eosinophils % Basophils % Iron TIBC Iron Saturation Folate Folate Hemolysate Blood Type Antibody Screen Crossmatch Neck-no JVD Lungs few rales at THE BASES Heart S1S2 irregular, irregular Abdomen soft, NT EExt-no CCE Small clean pressure uler sacrum, Current Active Problems Problem Status Diagnosed Acute renal insufficiency Acute Anemia Acute Atrial fibrillation, chronic Acute CAD (coronary artery disease) Acute GI bleeding Acute HLD (hyperlipidemia) Acute HTN (hypertension) Acute Hypokalemia Acute NSTEMI (non-ST elevated myocardial infarction) Acute UTI (urinary tract infection) Acute Plan Continue telemetry. Endoscopy to r/o UGI source of bleed Will restart Coumadin without ASA when cleared by GI Problem List - Problems (1) Anemia Code(s): D64.9 - ANEMIA, UNSPECIFIED Qualifiers: Anemia type: other cause Other causes of anemia: acute posthemorrhagic Qualified Code(s): D62 - Acute posthemorrhagic anemia (2) Atrial fibrillation, chronic Code(s): I48.2 - CHRONIC ATRIAL FIBRILLATION (3) GI bleeding Code(s): K92.2 - GASTROINTESTINAL HEMORRHAGE, UNSPECIFIED Qualifiers: GI bleed type/associated pathology: anorectal hemorrhage Qualified Code (s): K62.5 - Hemorrhage of anus and rectum (4) NSTEMI (non-ST elevated myocardial infarction) Code(s): I21.4 - NON-ST ELEVATION (NSTEMI) MYOCARDIAL INFARCTION (5) Acute renal insufficiency Code(s): N28.9 - DISORDER OF KIDNEY AND URETER, UNSPECIFIED (6) UTI (urinary tract infection) Code(s): N39.0 - URINARY TRACT INFECTION, SITE NOT SPECIFIED Qualifiers: Urinary tract infection type: site unspecified (7) Hypokalemia Code(s): E87.6 - HYPOKALEMIA
--- NOTE | 2016-12-24 08:57 | PN ---
Progress Note, Physician Chief Complaint: denies chest pain TELE: rate controlled AF - Current Medication List Current Medications: Active Medications Atorvastatin Calcium (Lipitor -) 80 mg PO HS [facility] Last Admin: 12/23/16 21:15 Dose: 80 mg Brimonidine Tartrate (Alphagan P 0.1% -) 1 drop OD TID [facility] Last Admin: 12/24/16 05:39 Dose: 1 drop Docusate Sodium (Colace -) 100 mg PO DAILY [facility] Last Admin: 12/23/16 10:12 Dose: 100 mg Furosemide (Lasix -) 40 mg PO DAILY [facility] Last Admin: 12/23/16 10:12 Dose: 40 mg Potassium Chloride 10 meq/ (Dextrose/Sodium Chloride) 1,005 mls @ 42 mls/hr IVPB Q24H [facility] Last Admin: 12/23/16 15:52 Dose: 42 mls/hr Latanoprost (Xalatan 0.005% Eye Drops -) 1 drop OD HS [facility] Last Admin: 12/23/16 21:16 Dose: 1 drop Levothyroxine Sodium (Synthroid -) 125 mcg PO DAILY@0700 [facility] Last Admin: 12/24/16 06:28 Dose: Not Given Metoprolol Tartrate (Lopressor -) 75 mg PO DAILY [facility] Last Admin: 12/23/16 10:12 Dose: 75 mg Pantoprazole Sodium (Protonix -) 40 mg PO BID [facility] Last Admin: 12/23/16 21:15 Dose: 40 mg Potassium Chloride (K-Dur -) 10 meq PO DAILY [facility] Last Admin: 12/23/16 10:12 Dose: 10 meq Ranolazine (Ranexa -) 500 mg PO BID [facility] Last Admin: 12/23/16 21:14 Dose: 500 mg Silver Sulfadiazine (Silvadene -) 1 applic TP DAILY [facility] Last Admin: 12/23/16 17:29 Dose: 1 applic - Objective Vital Signs: Vital Signs Temperature 97.5 F L 12/24/16 06:00 Pulse Rate 85 12/24/16 06:00 Respiratory Rate 20 12/24/16 06:00 Blood Pressure 118/59 12/24/16 06:00 O2 Sat by Pulse Oximetry (%) 97 12/23/16 11:53 Constitutional: Yes: Calm Eyes: Yes: Conjunctiva Clear Cardiovascular: Yes: Pulse Irregular Respiratory: Yes: Other (no wheezing, slight decreased breath sounds at bases) Gastrointestinal: Yes: Soft Edema: Yes Edema: LLE: 1+, RLE: 1+ Neurological: Yes: Alert Labs: CBC, BMP 12/24/16 05:35 12/23/16 05:35 INR, PTT INR 1.34 (0.82-1.09) H 12/22/16 05:35 Fibrinogen 328.0 mg/dL (238-498) 12/22/16 05:35 Laboratory Tests 12/21/16 12/23/16 12/24/16 21:15 05:35 05:35 WBC 13.0 H Hgb 10.3 L Plt Count 243 Potassium 4.0 D Creatinine 1.0 Creatine Kinase 43 Troponin I 0.44 H Assessment/Plan Chronic AF GI Bleed Systolic CHF, acute on chronic Atrial fibrillation-chronic, had been on Xarelto -now with GI bleed with significant anemia requiring 2 units PRBC -off Xarelto now 3-4 days -hold all AC until source bleeding found -HR is currently adequately controlled -cont metoprolol as long as BP tolerates -tele monitoring for now NSTEMI-h/o CAD with prior NSTEMI, need to clarify if pt had PCI in the past -troponin elevated but not trending up 0.67--> 0.59 with normal CK level -likely demand ischemia in setting of GI bleed/anemia with known underlying CAD -hold anti-platelets and AC in setting of gi bleed - metoprolol as BP tolerates -cont statin -tele monitoring -given advanced age and significant co-morbidities (including GI bleed and DMITRY) pt unlikely to benefit from cardiac cath, would prefer to treat conservatively -when possible from a bleeding standpoint would consider starting anti-platelets -currently euvolemic, can hold lasix as BP low normal and noted to have DMITRY on labs Chronic systolic CHF- -cont lasix Risk stratification for EGD: -There are no absolute cardiac contraindications to EGD, a relatively low risk procedure. -Would suppliment O2 throughout EGD with careful monitoring of O2 sat, heart rate and BP. -Avoid excessive IV fluids -Post procedure return to telemetry
[2016-12-24] MEDS: POTASSIUM CHLORIDE 10 MEQ in DEXTROSE 5%-0.45% SALINE 1,000 ML IVPB SCH (11:39)
[2016-12-24] MEDS: DOCUSATE SODIUM 100 MG CAPSULE (FP) PO SCH (11:40)
[2016-12-24] MEDS: PANTOPRAZOLE 40 MG TABLET (FP) PO SCH ×3 (11:40→21:21)
[2016-12-24] MEDS: POTASSIUM CHLORIDE TABS 10 MEQ TABLET.ER (FP) PO SCH (11:40)
[2016-12-24] MEDS: RANOLAZINE E.R. 500 MG TABLET (FP) PO SCH ×3 (11:40→21:21)
[2016-12-24] MEDS: FUROSEMIDE 40 MG TABLET (FP) PO SCH (11:40)
[2016-12-24] MEDS: METOPROLOL TARTRATE 25 MG TABLET (FP) PO SCH ×2 (11:40→14:45)
[2016-12-24] MEDS ORDERED: ETOMIDATE 20 MG/10 ML AMPUL IVPUSH ONE (12:26)
--- NOTE | 2016-12-24 13:13 | PN ---
Progress Note (short form) - Note Progress Note: Attempted to obtain consistent pulse oximetry, changing locations including earlobes, fingers and also using warm blanket on hands and ears. A good consistent wave form could not be obtained. Procedure cancelled. I let Sr. Antunez know and spoke with her nurse Sandra as well. Problem List - Problems (1) GI bleeding Code(s): K92.2 - GASTROINTESTINAL HEMORRHAGE, UNSPECIFIED Qualifiers: GI bleed type/associated pathology: anorectal hemorrhage Qualified Code (s): K62.5 - Hemorrhage of anus and rectum
[2016-12-24] MEDS ORDERED: PT OWN MED DRAWER 7, Y5N ONE (13:59)
[2016-12-24] MEDS: SILVER SULFADIAZINE 1% TOP CREAM 50 GM JAR TP SCH (14:46)
--- NOTE | 2016-12-24 20:16 | PN ---
Progress Note (short form) - Note Progress Note: Last Vital Signs Temp Pulse Resp BP Pulse Ox 97.7 F 84 18 105/42 97 12/24/16 17:12 12/24/16 17:12 12/24/16 17:12 12/24/16 17:12 12/23/16 11:53 Cor: RSR, No murmurs, No gallops Lungs: Clear to P&A Abd: Soft, Normal bowel sounds, No organomegaly Ext:No significant edema Abnormal Lab Results 12/20/16 12/24/16 19:41 05:35 WBC 13.0 H RBC 3.37 L Hgb 10.3 L Hct 31.5 L RDW 17.9 H MPV 6.6 L Crossmatch See Detail Active Medications Generic Name Dose Route Start Last Admin Trade Name Freq PRN Reason Stop Dose Admin Atorvastatin Calcium 80 mg 12/20/16 22:00 12/23/16 21:15 Lipitor - PO 80 mg HS LALA Administration Brimonidine Tartrate 1 drop 12/20/16 22:00 12/24/16 14:46 Alphagan P 0.1% - OD 1 drop TID LALA Administration Docusate Sodium 100 mg 12/21/16 10:00 12/24/16 11:40 Colace - PO Not Given DAILY LALA Furosemide 40 mg 12/21/16 10:00 12/24/16 11:40 Lasix - PO Not Given DAILY LALA Potassium Chloride 10 meq/ 1,005 mls @ 42 mls/hr 12/21/16 09:09 12/24/16 11:39 Dextrose/Sodium Chloride IVPB Not Given Q24H LALA Latanoprost 1 drop 12/20/16 22:00 12/23/16 21:16 Xalatan 0.005% Eye Drops - OD 1 drop HS LALA Administration Levothyroxine Sodium 125 mcg 12/21/16 07:00 12/24/16 06:28 Synthroid - PO Not Given DAILY@0700 LALA Metoprolol Tartrate 75 mg 12/21/16 10:00 12/24/16 14:45 Lopressor - PO 75 mg DAILY LALA Administration Pantoprazole Sodium 40 mg 12/23/16 12:30 12/24/16 14:45 Protonix - PO 40 mg BID LALA Administration Potassium Chloride 10 meq 12/21/16 10:00 12/24/16 11:40 K-Dur - PO Not Given DAILY LALA Ranolazine 500 mg 12/20/16 22:00 12/24/16 14:47 Ranexa - PO 500 mg BID LALA Administration Silver Sulfadiazine 1 applic 12/23/16 10:00 12/24/16 14:46 Silvadene - TP 1 applic DAILY LALA Administration A/P 89 y/o patient with [facility], afib, htn, hypothyroid, recntly switched from coumadin to xeralto, comes in with melaena, Hgb 7.9., NSTEMI s/p PRBCs--hgb 10.7 off xeralto On PPI gi procedures held off today due to resp. status xeralto on hold stool occult+ iron studies --chronic disease B12/folate nl TSH--nl fT3 low --per endocrine
[2016-12-24] MEDS: ATORVASTATIN CA 80 MG TABLET (FP) PO SCH (21:20)
[2016-12-24] MEDS: LATANOPROST 0.005% OPHTH SOLN 2.5ML BOTTLE OD SCH (21:21)
[2016-12-25] MEDS: BRIMONIDINE TARTRATE 0.1% OPHTHALMIC 5 ML BOTTLE OD SCH ×3 (06:36→21:50)
[2016-12-25] MEDS: LEVOTHYROXINE NA 125 MCG TABLET (FP) PO SCH (06:36)
--- NOTE | 2016-12-25 07:25 | PN ---
Progress Note, Physician Chief Complaint: EGD was cancelled yesterday due to difficulty with obtaining reliable pulse oxymetry. Today in the room pulse oxymetry cannot be obtained from the fingers but can be obtained from the big toe- 99-100% on O2NC Discussed with the nursing staff. Pt is awake, alert, NAD. History of Present Illness: S/P OH-NSTENMI. UTI CAD. Angina. Chronic AFIB.Diastolic CHF PAD, B/L LE Bypass sx Hypothyroidism E.Coli infection HTN Hx TB Pressure sore Muscle weakness Cystectomy. - Current Medication List Current Medications: Active Medications Atorvastatin Calcium (Lipitor -) 80 mg PO HS [facility] Last Admin: 12/24/16 21:20 Dose: 80 mg Brimonidine Tartrate (Alphagan P 0.1% -) 1 drop OD TID [facility] Last Admin: 12/25/16 06:36 Dose: 1 drop Docusate Sodium (Colace -) 100 mg PO DAILY [facility] Last Admin: 12/24/16 11:40 Dose: Not Given Furosemide (Lasix -) 40 mg PO DAILY [facility] Last Admin: 12/24/16 11:40 Dose: Not Given Potassium Chloride 10 meq/ (Dextrose/Sodium Chloride) 1,005 mls @ 42 mls/hr IVPB Q24H [facility] Last Admin: 12/24/16 11:39 Dose: Not Given Latanoprost (Xalatan 0.005% Eye Drops -) 1 drop OD HS [facility] Last Admin: 12/24/16 21:21 Dose: 1 drop Levothyroxine Sodium (Synthroid -) 125 mcg PO DAILY@0700 [facility] Last Admin: 12/25/16 06:36 Dose: 125 mcg Metoprolol Tartrate (Lopressor -) 75 mg PO DAILY [facility] Last Admin: 12/24/16 14:45 Dose: 75 mg Pantoprazole Sodium (Protonix -) 40 mg PO BID [facility] Last Admin: 12/24/16 21:21 Dose: 40 mg Potassium Chloride (K-Dur -) 10 meq PO DAILY [facility] Last Admin: 12/24/16 11:40 Dose: Not Given Ranolazine (Ranexa -) 500 mg PO BID [facility] Last Admin: 12/24/16 21:21 Dose: 500 mg Silver Sulfadiazine (Silvadene -) 1 applic TP DAILY [facility] Last Admin: 12/24/16 14:46 Dose: 1 applic - Objective Vital Signs: Vital Signs Temperature 97.4 F L 12/25/16 06:31 Pulse Rate 85 12/25/16 06:31 Respiratory Rate 18 12/25/16 06:31 Blood Pressure 108/58 12/25/16 06:31 O2 Sat by Pulse Oximetry (%) 97 12/23/16 11:53 Constitutional: Yes: No Distress, Anxious Eyes: Yes: Conjunctiva Clear, EOM Intact HENT: Yes: Atraumatic, Normocephalic. No: Drooling, Epistaxis, Nasal Congestion Neck: Yes: Trachea Midline, Decreased ROM. No: Lymphadenopathy, Thyromegaly Cardiovascular: Yes: Pulse Irregular, Murmur, S1, S2. No: Bradycardia, Tachycardia Respiratory: Yes: Regular, On Nasal O2, Rhonchi, SOB on Exertion. No: Tachypnea , Wheezes Gastrointestinal: Yes: Soft. No: Abdomen, Obese, Ascites, Palpable Mass, Tenderness ...Rectal Exam: Yes: Deferred Genitourinary: No: Anuria, Bladder Distention Breast(s): Yes: WNL Musculoskeletal: Yes: Joint Stiffness Extremities: Yes: Cyanosis (Acrocyanosis). No: Calf Tenderness, Cold Edema: Yes Edema: LUE: 1+, RUE: 1+, LLE: 1+, RLE: 1+ Peripheral Pulses WNL: No Peripheral Pulses: Left Radial: 0, Right Radial: 0, Left Doralis Pedis: 0, Right Dorsalis Pedis: 0, Left Femoral: 0, Right Femoral: 0 Integumentary: Yes: Pressure Ulcer Wound/Incision: Yes: Clean/Dry Neurological: Yes: Alert, Oriented. No: Aphasia, Dysarthria, Seizure, Unresponsive Psychiatric: Yes: Alert, Oriented Labs: CBC, BMP 12/24/16 05:35 12/23/16 05:35 INR, PTT INR 1.34 (0.82-1.09) H 12/22/16 05:35 Fibrinogen 328.0 mg/dL (238-498) 12/22/16 05:35 Problem List - Problems (1) Anemia Assessment/Plan: PRBC TX Follow H/H-received 2 units H/H improved/stable Code(s): D64.9 - ANEMIA, UNSPECIFIED Qualifiers: Anemia type: other cause Other causes of anemia: acute posthemorrhagic Qualified Code(s): D62 - Acute posthemorrhagic anemia (2) Atrial fibrillation, chronic Assessment/Plan: OFF A/C Will re-start Coumadin after endoscopy as per GI without ASA Control V-Rate Code(s): I48.2 - CHRONIC ATRIAL FIBRILLATION (3) GI bleeding Assessment/Plan: Probably UGI. GI f/u Protonix IV Will discuss with GI re EGD. Code(s): K92.2 - GASTROINTESTINAL HEMORRHAGE, UNSPECIFIED Qualifiers: GI bleed type/associated pathology: anorectal hemorrhage Qualified Code (s): K62.5 - Hemorrhage of anus and rectum (4) NSTEMI (non-ST elevated myocardial infarction) Assessment/Plan: Follow Trop I-positive, EKG noted Cardiology Continue BAB Hold Aspirin, a/c 2 GI bleed Code(s): I21.4 - NON-ST ELEVATION (NSTEMI) MYOCARDIAL INFARCTION (5) Acute renal insufficiency Assessment/Plan: Elevated BUN and increased BUN/Creat-probably due to acute GI bleed. Improving BUN/Creat Code(s): N28.9 - DISORDER OF KIDNEY AND URETER, UNSPECIFIED
--- NOTE | 2016-12-25 08:32 | PN ---
Progress Note, Physician Chief Complaint: This AM no distress - Current Medication List Current Medications: Active Medications Atorvastatin Calcium (Lipitor -) 80 mg PO HS [facility] Last Admin: 12/24/16 21:20 Dose: 80 mg Brimonidine Tartrate (Alphagan P 0.1% -) 1 drop OD TID [facility] Last Admin: 12/25/16 06:36 Dose: 1 drop Docusate Sodium (Colace -) 100 mg PO DAILY [facility] Last Admin: 12/24/16 11:40 Dose: Not Given Furosemide (Lasix -) 40 mg PO DAILY [facility] Last Admin: 12/24/16 11:40 Dose: Not Given Potassium Chloride 10 meq/ (Dextrose/Sodium Chloride) 1,005 mls @ 42 mls/hr IVPB Q24H [facility] Last Admin: 12/24/16 11:39 Dose: Not Given Latanoprost (Xalatan 0.005% Eye Drops -) 1 drop OD HS [facility] Last Admin: 12/24/16 21:21 Dose: 1 drop Levothyroxine Sodium (Synthroid -) 125 mcg PO DAILY@0700 [facility] Last Admin: 12/25/16 06:36 Dose: 125 mcg Metoprolol Tartrate (Lopressor -) 75 mg PO DAILY [facility] Last Admin: 12/24/16 14:45 Dose: 75 mg Pantoprazole Sodium (Protonix -) 40 mg PO BID [facility] Last Admin: 12/24/16 21:21 Dose: 40 mg Potassium Chloride (K-Dur -) 10 meq PO DAILY [facility] Last Admin: 12/24/16 11:40 Dose: Not Given Ranolazine (Ranexa -) 500 mg PO BID [facility] Last Admin: 12/24/16 21:21 Dose: 500 mg Silver Sulfadiazine (Silvadene -) 1 applic TP DAILY [facility] Last Admin: 12/24/16 14:46 Dose: 1 applic - Objective Vital Signs: Vital Signs Temperature 97.4 F L 12/25/16 06:31 Pulse Rate 85 12/25/16 06:31 Respiratory Rate 18 12/25/16 06:31 Blood Pressure 108/58 12/25/16 06:31 O2 Sat by Pulse Oximetry (%) 97 12/25/16 06:00 Constitutional: Yes: No Distress Cardiovascular: Yes: Pulse Irregular Respiratory: Yes: Other (slightly de) Gastrointestinal: Yes: Soft Neurological: Yes: Alert Labs: CBC, BMP 04/06/17 05:35 12/23/16 05:35 INR, PTT INR 1.34 (0.82-1.09) H 12/22/16 05:35 Fibrinogen 328.0 mg/dL (238-498) 12/22/16 05:35 Laboratory Tests 12/22/16 12/23/16 12/24/16 05:35 05:35 05:35 WBC 13.0 H Hgb 10.3 L Plt Count 243 INR 1.34 H Potassium 4.0 D Creatinine 1.0 - ....Imaging EKG: Image Reviewed Assessment/Plan Assessment/Plan Chronic AF GI Bleed Systolic CHF, acute on chronic Atrial fibrillation-chronic, had been on Xarelto -now with GI bleed with significant anemia requiring 2 units PRBC -off Xarelto now 3-4 days -hold all AC until source bleeding found -HR is currently adequately controlled -cont metoprolol as long as BP tolerates -tele monitoring NSTEMI-h/o CAD with prior NSTEMI, need to clarify if pt had PCI in the past -troponin elevated but not trending up 0.67--> 0.59 with normal CK level -likely demand ischemia in setting of GI bleed/anemia with known underlying CAD -hold anti-platelets and AC in setting of gi bleed - metoprolol as BP tolerates -cont statin -tele monitoring -given advanced age and significant co-morbidities (including GI bleed and DMITRY) pt unlikely to benefit from cardiac cath, would prefer to treat conservatively -when possible from a bleeding standpoint would consider starting anti-platelets -currently euvolemic, can hold lasix as BP low normal and noted to have DMITRY on labs Chronic systolic CHF- -cont lasix Risk stratification for EGD: -There are no absolute cardiac contraindications to EGD, a relatively low risk procedure. -Would suppliment O2 throughout EGD with careful monitoring of O2 sat, heart rate and BP. -Avoid excessive IV fluids -Post procedure return to telemetry
[2016-12-25] MEDS ORDERED: PT OWN MED DRAWER 7, Y5N ONE ×2 (10:08→21:58)
[2016-12-25] MEDS ORDERED: PROPOFOL 20 ML ONE (13:12)
[2016-12-25] MEDS ORDERED: LIDOCAINE HCL/PF 2% SDV 5ML VIAL ONE (13:12)
--- NOTE | 2016-12-25 13:46 | PN ---
Progress Note (short form) - Note Progress Note: GI Procedure NOte: Please see EGD report. Multiple small shallow antral ulcerations were noted. No bleeding. Biopsy for HP taken. Will resume diet. Communicated with Dr Goodwin. Can resume coumadin.
[2016-12-25] MEDS: SILVER SULFADIAZINE 1% TOP CREAM 50 GM JAR TP SCH (14:30)
[2016-12-25] MEDS: POTASSIUM CHLORIDE 10 MEQ in DEXTROSE 5%-0.45% SALINE 1,000 ML IVPB SCH (14:30)
[2016-12-25] MEDS: POTASSIUM CHLORIDE TABS 10 MEQ TABLET.ER (FP) PO SCH (15:41)
[2016-12-25] MEDS: FUROSEMIDE 40 MG TABLET (FP) PO SCH (15:41)
[2016-12-25] MEDS: DOCUSATE SODIUM 100 MG CAPSULE (FP) PO SCH (15:41)
[2016-12-25] MEDS: PANTOPRAZOLE 40 MG TABLET (FP) PO SCH ×2 (15:41→21:45)
[2016-12-25] MEDS: METOPROLOL TARTRATE 25 MG TABLET (FP) PO SCH (15:42)
[2016-12-25] MEDS: RANOLAZINE E.R. 500 MG TABLET (FP) PO SCH ×2 (15:42→21:45)
[2016-12-25] MEDS: ATORVASTATIN CA 80 MG TABLET (FP) PO SCH (21:45)
[2016-12-25] MEDS: LATANOPROST 0.005% OPHTH SOLN 2.5ML BOTTLE OD SCH (21:50)
[2016-12-26] MEDS: BRIMONIDINE TARTRATE 0.1% OPHTHALMIC 5 ML BOTTLE OD SCH ×3 (06:45→21:47)
[2016-12-26] MEDS: LEVOTHYROXINE NA 125 MCG TABLET (FP) PO SCH (06:45)
[2016-12-26] MEDS ORDERED: PT OWN MED DRAWER 7, Y5N ONE ×3 (06:59→21:34)
[2016-12-26] MEDS ORDERED: INSULIN DETEMIR 100 UNITS/ML MDV SQ ONE (07:00)
[2016-12-26 08:33] LABS: BASOPHIL 0.5 % (0-2.0); EOSINOPHIL 1.8 % (0-4.5); MCH 30.6 pg (25.7-33.7); MCHC 32.7 g/dl (32.0-36.0); MEAN CELL VOLUME 93.5 fl (80-96); MEAN PLT VOLUME 6.8 fl (7.5-11.1); NEUTROPHILS 80.8 % (42.8-82.8); PLATELET COUNT 231 K/MM3 (134-434); RDW 17.7 % (11.6-15.6); WHITE BLOOD COUNT 11.7 K/mm3 (4.0-10.0)
[2016-12-26 09:10] LABS: ALBUMIN 1.8 g/dl (3.4-5.0); ANION GAP 7 (8-16); CO2 25 mmol/L (21-32); GLUCOSE,RANDOM 98 mg/dL (74-106)
[2016-12-26 09:13] LABS: ALK PHOS 67 U/L (45-117); BILIRUBIN,TOTAL 0.3 mg/dL (0.2-1.0); CREATININE 0.8 mg/dL (0.55-1.02); SGOT/AST 18 U/L (15-37); SGPT/ALT 22 U/L (12-78); TOT PROT 4.7 g/dl (6.4-8.2)
[2016-12-26] MEDS: METOPROLOL TARTRATE 25 MG TABLET (FP) PO SCH (10:29)
[2016-12-26] MEDS: DOCUSATE SODIUM 100 MG CAPSULE (FP) PO SCH (10:29)
[2016-12-26] MEDS: PANTOPRAZOLE 40 MG TABLET (FP) PO SCH (10:29)
[2016-12-26] MEDS: POTASSIUM CHLORIDE 10 MEQ in DEXTROSE 5%-0.45% SALINE 1,000 ML IVPB SCH (10:29)
[2016-12-26] MEDS: FUROSEMIDE 40 MG TABLET (FP) PO SCH (10:29)
[2016-12-26] MEDS: RANOLAZINE E.R. 500 MG TABLET (FP) PO SCH ×2 (10:29→21:47)
[2016-12-26] MEDS: POTASSIUM CHLORIDE TABS 10 MEQ TABLET.ER (FP) PO SCH (10:29)
--- NOTE | 2016-12-26 13:26 | PN ---
Progress Note (short form) - Note Progress Note: Awake, awake, NAD. EGD-discussed. Small gastric ulcers found. No contraindications for coumadin. Vital Signs (72 hours) 12/23/16 12/23/16 12/23/16 15:27 18:04 22:00 Temperature 97.3 F L 98.1 F 98.2 F Pulse Rate 81 81 78 Respiratory 20 20 20 Rate Blood Pressure 114/56 96/41 101/41 O2 Sat by Pulse Oximetry (%) 12/24/16 12/24/16 12/24/16 01:57 06:00 10:00 Temperature 97.5 F L 97.5 F L 97.5 F L Pulse Rate 89 85 93 H Respiratory 20 20 20 Rate Blood Pressure 111/47 118/59 116/79 O2 Sat by Pulse Oximetry (%) 12/24/16 12/24/16 12/25/16 15:00 17:12 02:00 Temperature 97.6 F 97.7 F 97.3 F L Pulse Rate 91 H 84 75 Respiratory 18 18 18 Rate Blood Pressure 122/56 105/42 96/47 O2 Sat by Pulse Oximetry (%) 12/25/16 12/25/16 12/25/16 06:00 06:31 09:00 Temperature 97.4 F L Pulse Rate 85 Respiratory 18 Rate Blood Pressure 108/58 O2 Sat by Pulse 97 100 Oximetry (%) 12/25/16 12/25/16 12/25/16 10:00 13:39 13:44 Temperature 98 F 97.5 F L Pulse Rate 82 85 85 Respiratory 20 20 21 Rate Blood Pressure 124/58 98/61 95/43 O2 Sat by Pulse 94 L 93 L Oximetry (%) 12/25/16 12/25/16 12/25/16 13:59 14:14 14:18 Temperature 97.5 F L Pulse Rate 87 80 80 Respiratory 21 21 22 Rate Blood Pressure 105/50 111/66 111/66 O2 Sat by Pulse 97 97 97 Oximetry (%) 12/25/16 12/25/16 12/26/16 18:45 21:00 02:00 Temperature 97.5 F L 97.6 F 98.2 F Pulse Rate 94 H 81 84 Respiratory 20 16 20 Rate Blood Pressure 119/55 125/65 92/51 O2 Sat by Pulse Oximetry (%) 12/26/16 12/26/16 06:06 10:36 Temperature 97.6 F Pulse Rate 81 87 Respiratory 16 20 Rate Blood Pressure 105/55 116/65 O2 Sat by Pulse Oximetry (%) Lungs clear. Heart S1S2 irregular, irregular No JVD Abdomen soft, NT UE/LE edema +1. Current Active Problems Problem Status Diagnosed Acute renal insufficiency Acute Anemia Acute Atrial fibrillation, chronic Acute CAD (coronary artery disease) Acute GI bleeding Acute HLD (hyperlipidemia) Acute HTN (hypertension) Acute NSTEMI (non-ST elevated myocardial infarction) Acute Plan Protonix PO QD Coumadin today Follow INR daily CBC AM Will hold off on ASA IV to heplock Problem List - Problems (1) Anemia Code(s): D64.9 - ANEMIA, UNSPECIFIED Qualifiers: Anemia type: other cause Other causes of anemia: acute posthemorrhagic Qualified Code(s): D62 - Acute posthemorrhagic anemia (2) Atrial fibrillation, chronic Code(s): I48.2 - CHRONIC ATRIAL FIBRILLATION (3) GI bleeding Code(s): K92.2 - GASTROINTESTINAL HEMORRHAGE, UNSPECIFIED Qualifiers: GI bleed type/associated pathology: anorectal hemorrhage Qualified Code (s): K62.5 - Hemorrhage of anus and rectum (4) NSTEMI (non-ST elevated myocardial infarction) Code(s): I21.4 - NON-ST ELEVATION (NSTEMI) MYOCARDIAL INFARCTION (5) Acute renal insufficiency Code(s): N28.9 - DISORDER OF KIDNEY AND URETER, UNSPECIFIED
--- NOTE | 2016-12-26 14:37 | PN ---
GI Progress Note Subjective: GI NOte: No adverse effects following EGD. Hb stable. Findings again discussed with patient and with Dr Goodwin. - Objective Vital Signs: Vital Signs Temperature 97.8 F 12/26/16 14:00 Pulse Rate 85 12/26/16 14:00 Respiratory Rate 18 12/26/16 14:00 Blood Pressure 103/70 12/26/16 14:00 O2 Sat by Pulse Oximetry (%) 97 12/25/16 14:18 Constitutional: Calm ...Auscultate: Yes: Normoactive Bowel Sounds ...Palpate: Yes: Soft, Other (nontender) Labs: CBC, BMP 12/26/16 07:40 12/26/16 07:40 INR, PTT INR 1.34 (0.82-1.09) H 12/22/16 05:35 Fibrinogen 328.0 mg/dL (238-498) 12/22/16 05:35 Laboratory Tests 12/24/16 12/26/16 05:35 07:40 WBC 11.7 H Hgb 10.3 L 10.0 L Assessment/Plan Resolved gastric ulcers bleed. Can start Coumadin. Continue pantoprazole indefinitely. Will observe for rebleeding on coumadin
[2016-12-26] MEDS ORDERED: WARFARIN NA 5 MG TABLET (UD) PO ONE (14:45)
[2016-12-26] MEDS: SILVER SULFADIAZINE 1% TOP CREAM 50 GM JAR TP SCH (15:30)
[2016-12-26 16:36] LABS: INR 1.34 (0.82-1.09); PROTHROMBIN TIME (PATIENT) 14.8 SEC (9.98-11.88)
--- NOTE | 2016-12-26 19:16 | PN ---
Progress Note, Physician Chief Complaint: Pt feels fatigued; no chest pain. 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 [facility] noticed blood in the stool on Wednesday, 2 days ago. The patient recently switched from Coumadin to xarelto. The [facility] staff stopped xarelto 2 days ago when they noticed melena. EMS initially reported hypotension. She has a cali catheter in place. Denies fever, chills, nausea, vomiting. Denies abdominal pain. Allergies: none reported - Current Medication List Current Medications: Active Medications Atorvastatin Calcium (Lipitor -) 80 mg PO HS [facility] Last Admin: 12/25/16 21:45 Dose: 80 mg Brimonidine Tartrate (Alphagan P 0.1% -) 1 drop OD TID [facility] Last Admin: 12/26/16 14:37 Dose: 1 drop Docusate Sodium (Colace -) 100 mg PO DAILY [facility] Last Admin: 12/26/16 10:29 Dose: 100 mg Furosemide (Lasix -) 40 mg PO DAILY [facility] Last Admin: 12/26/16 10:29 Dose: 40 mg Latanoprost (Xalatan 0.005% Eye Drops -) 1 drop OD HS [facility] Last Admin: 12/25/16 21:50 Dose: 1 drop Levothyroxine Sodium (Synthroid -) 125 mcg PO DAILY@0700 [facility] Last Admin: 12/26/16 06:45 Dose: 125 mcg Metoprolol Tartrate (Lopressor -) 75 mg PO DAILY [facility] Last Admin: 12/26/16 10:29 Dose: 75 mg Pantoprazole Sodium (Protonix -) 40 mg PO DAILY [facility] Potassium Chloride (K-Dur -) 10 meq PO DAILY [facility] Last Admin: 12/26/16 10:29 Dose: 10 meq Ranolazine (Ranexa -) 500 mg PO BID [facility] Last Admin: 12/26/16 10:29 Dose: 500 mg Silver Sulfadiazine (Silvadene -) 1 applic TP DAILY [facility] Last Admin: 12/26/16 15:30 Dose: 1 applic - Objective Vital Signs: Vital Signs Temperature 97.8 F 12/26/16 14:00 Pulse Rate 85 12/26/16 14:00 Respiratory Rate 18 12/26/16 14:00 Blood Pressure 103/70 12/26/16 14:00 O2 Sat by Pulse Oximetry (%) 97 12/25/16 14:18 Constitutional: Yes: Calm Eyes: Yes: WNL HENT: Yes: WNL Gastrointestinal: Yes: Soft ...Rectal Exam: Yes: Deferred Genitourinary: No: Anuria Musculoskeletal: Yes: Muscle Weakness Extremities: Yes: Cool, Other (wears a soft "boot" on right ankle (?from graft that led to foot drop)) Edema: Yes Edema: LLE: Trace, RLE: Trace Neurological: Yes: Alert, Oriented Psychiatric: Yes: WNL Labs: CBC, BMP 12/26/16 07:40 12/26/16 07:40 INR, PTT INR 1.34 (0.82-1.09) H 12/26/16 16:11 Fibrinogen 328.0 mg/dL (238-498) 12/22/16 05:35 - ....Imaging Other: Image Reviewed (telemetry: AF) Problem List - Problems (1) Anemia Assessment/Plan: s/p EGD. On PO Protonix; s/p PRBCs. Code(s): D64.9 - ANEMIA, UNSPECIFIED Qualifiers: Anemia type: other cause Other causes of anemia: acute posthemorrhagic Qualified Code(s): D62 - Acute posthemorrhagic anemia (2) Atrial fibrillation, chronic Assessment/Plan: On metoprolol tartrate; will change to succinate for 24 hour coverage. Restarting warfarin today; f/u INR. F/u Hb (GI bleed). Code(s): I48.2 - CHRONIC ATRIAL FIBRILLATION (3) CAD (coronary artery disease) Code(s): I25.10 - ATHSCL HEART DISEASE OF [place] CORONARY ARTERY W/O ANG PCTRS (4) HLD (hyperlipidemia) Code(s): E78.5 - HYPERLIPIDEMIA, UNSPECIFIED (5) HTN (hypertension) Code(s): I10 - ESSENTIAL (PRIMARY) HYPERTENSION
[2016-12-26] MEDS: ATORVASTATIN CA 80 MG TABLET (FP) PO SCH (21:47)
[2016-12-26] MEDS: LATANOPROST 0.005% OPHTH SOLN 2.5ML BOTTLE OD SCH (21:47)
[2016-12-27] MEDS ORDERED: PT OWN MED DRAWER 7, Y5N ONE ×4 (05:57→21:43)
[2016-12-27] MEDS: LEVOTHYROXINE NA 125 MCG TABLET (FP) PO SCH (06:05)
[2016-12-27] MEDS: BRIMONIDINE TARTRATE 0.1% OPHTHALMIC 5 ML BOTTLE OD SCH ×3 (06:05→21:37)
[2016-12-27 08:18] LABS: CALCIUM 7.9 mg/dL (8.5-10.1); COCKROFT - GAULT 56.321; CREATININE 0.8 mg/dL (0.55-1.02)
[2016-12-27] MEDS ORDERED: METOPROLOL SUCCINATE 50 MG TAB.SR.24H (FP) PO ONE (09:00)
[2016-12-27 09:04] LABS: BASOPHIL 0.4 % (0-2.0); EOSINOPHIL 1.6 % (0-4.5); MCH 30.8 pg (25.7-33.7); MCHC 32.6 g/dl (32.0-36.0); MEAN CELL VOLUME 94.5 fl (80-96); MEAN PLT VOLUME 6.8 fl (7.5-11.1); NEUTROPHILS 80.8 % (42.8-82.8); PLATELET COUNT 237 K/MM3 (134-434); RDW 17.5 % (11.6-15.6); WHITE BLOOD COUNT 10.1 K/mm3 (4.0-10.0)
[2016-12-27] MEDS: DOCUSATE SODIUM 100 MG CAPSULE (FP) PO SCH (09:17)
[2016-12-27] MEDS: PANTOPRAZOLE 40 MG TABLET (FP) PO SCH (09:17)
[2016-12-27] MEDS: FUROSEMIDE 40 MG TABLET (FP) PO SCH (09:18)
[2016-12-27] MEDS: POTASSIUM CHLORIDE TABS 10 MEQ TABLET.ER (FP) PO SCH (09:18)
[2016-12-27] MEDS: RANOLAZINE E.R. 500 MG TABLET (FP) PO SCH ×2 (09:18→21:37)
[2016-12-27 09:19] LABS: INR 1.51 (0.82-1.09); PROTHROMBIN TIME (PATIENT) 16.7 SEC (9.98-11.88)
[2016-12-27] MEDS: SILVER SULFADIAZINE 1% TOP CREAM 50 GM JAR TP SCH (10:00)
--- NOTE | 2016-12-27 12:18 | PN ---
GI Progress Note Subjective: GI Note: Feeling stronger and eating. NO overt bleeding and Hb has risen. - Objective Vital Signs: Vital Signs Temperature 97.6 F 12/27/16 06:00 Pulse Rate 86 12/27/16 06:00 Respiratory Rate 20 12/27/16 06:00 Blood Pressure 120/54 12/27/16 06:00 O2 Sat by Pulse Oximetry (%) 97 12/25/16 14:18 Constitutional: Calm ...Auscultate: Yes: Normoactive Bowel Sounds ...Palpate: Yes: Soft, Other (nontender) Labs: CBC, BMP 12/27/16 08:15 12/27/16 06:15 INR, PTT INR 1.51 (0.82-1.09) H 12/27/16 08:15 Fibrinogen 328.0 mg/dL (238-498) 12/22/16 05:35 Laboratory Tests 12/27/16 12/27/16 08:15 08:15 Hgb 10.5 L INR 1.51 H Assessment/Plan Resolved gastric ulcers bleed. Coumadin started. Continue pantoprazole. No rebleeding so far on coumadin
--- NOTE | 2016-12-27 14:02 | PN ---
Progress Note, Physician Chief Complaint: Pt alert; denies chest pain, palpitations, or dyspnea. 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 The staff at the [facility] noticed blood in the stool on Wednesday, 2 days ago. The patient recently switched from Coumadin to xarelto. The [facility] staff stopped xarelto 2 days ago when they noticed melena. EMS initially reported hypotension. She has a cali catheter in place. Denies fever, chills, nausea, vomiting. Denies abdominal pain. Allergies: none reported - Current Medication List Current Medications: Active Medications Atorvastatin Calcium (Lipitor -) 80 mg PO HS [facility] Last Admin: 12/26/16 21:47 Dose: 80 mg Brimonidine Tartrate (Alphagan P 0.1% -) 1 drop OD TID [facility] Last Admin: 12/27/16 06:05 Dose: 1 drop Docusate Sodium (Colace -) 100 mg PO DAILY [facility] Last Admin: 12/27/16 09:17 Dose: 100 mg Furosemide (Lasix -) 40 mg PO DAILY [facility] Last Admin: 12/27/16 09:18 Dose: 40 mg Latanoprost (Xalatan 0.005% Eye Drops -) 1 drop OD [facility] Last Admin: 12/26/16 21:47 Dose: 1 drop Levothyroxine Sodium (Synthroid -) 125 mcg PO DAILY@0700 [facility] Last Admin: 12/27/16 06:05 Dose: 125 mcg Pantoprazole Sodium (Protonix -) 40 mg PO DAILY [facility] Last Admin: 12/27/16 09:17 Dose: 40 mg Potassium Chloride (K-Dur -) 10 meq PO DAILY [facility] Last Admin: 12/27/16 09:18 Dose: 10 meq Ranolazine (Ranexa -) 500 mg PO BID [facility] Last Admin: 12/27/16 09:18 Dose: 500 mg Silver Sulfadiazine (Silvadene -) 1 applic TP DAILY [facility] Last Admin: 12/26/16 15:30 Dose: 1 applic Warfarin Sodium (Coumadin -) 2 mg PO DAILY@1800 [facility] - Objective Vital Signs: Vital Signs Temperature 97.2 F L 12/27/16 13:55 Pulse Rate 88 12/27/16 13:55 Respiratory Rate 20 12/27/16 13:55 Blood Pressure 122/60 12/27/16 13:55 O2 Sat by Pulse Oximetry (%) 97 12/25/16 14:18 Constitutional: Yes: Calm Eyes: Yes: WNL HENT: Yes: Other (head tilted to left side while in bed) Neck: Yes: Other (head tilted to left side while in bed) Cardiovascular: Yes: Pulse Irregular Respiratory: Yes: Regular Gastrointestinal: Yes: Soft. No: Tenderness ...Rectal Exam: Yes: Deferred Genitourinary: Yes: Anuria Musculoskeletal: Yes: Muscle Weakness Extremities: Yes: Cool Edema: No Peripheral Pulses WNL: Yes Integumentary: Yes: WNL Neurological: Yes: Alert, Oriented Psychiatric: Yes: Alert, Oriented Labs: CBC, BMP 12/27/16 08:15 12/27/16 06:15 INR, PTT INR 1.51 (0.82-1.09) H 12/27/16 08:15 Fibrinogen 328.0 mg/dL (238-498) 12/22/16 05:35 - ....Imaging Other: Image Reviewed (telemetry: aF) Problem List - Problems (1) Anemia Assessment/Plan: s/p EGD. On PO Protonix; s/p PRBCs. Rivaroxaban stopped. Pt has been started on warfarin Code(s): D64.9 - ANEMIA, UNSPECIFIED Qualifiers: Anemia type: other cause Other causes of anemia: acute posthemorrhagic Qualified Code(s): D62 - Acute posthemorrhagic anemia (2) Atrial fibrillation, chronic Assessment/Plan: On metoprolol for HR control. Restarted warfarin; would use IV heparin or Lovenox until INR 2-3; ( F/u Hb, which is presently stable (GI bleed)). Code(s): I48.2 - CHRONIC ATRIAL FIBRILLATION (3) CAD (coronary artery disease) Code(s): I25.10 - ATHSCL HEART DISEASE OF [place] CORONARY ARTERY W/O ANG PCTRS (4) HLD (hyperlipidemia) Code(s): E78.5 - HYPERLIPIDEMIA, UNSPECIFIED (5) HTN (hypertension) Code(s): I10 - ESSENTIAL (PRIMARY) HYPERTENSION (6) Hypothyroid Assessment/Plan: on synthroid; TSH 0.4. Code(s): E03.9 - HYPOTHYROIDISM, UNSPECIFIED
--- NOTE | 2016-12-27 15:50 | PN ---
Progress Note (short form) - Note Progress Note: Awake, alert. NAD. Persistent small LS pressure ulser. Generalized UE/LE edema Oxygen Saturation (SpO2) SpO2 % Vital Signs (72 hours) 12/24/16 12/25/16 12/25/16 17:12 02:00 06:00 Temperature 97.7 F 97.3 F L Pulse Rate 84 75 Respiratory 18 18 Rate Blood Pressure 105/42 96/47 O2 Sat by Pulse 97 Oximetry (%) 12/25/16 12/25/16 12/25/16 06:31 09:00 10:00 Temperature 97.4 F L 98 F Pulse Rate 85 82 Respiratory 18 20 Rate Blood Pressure 108/58 124/58 O2 Sat by Pulse 100 Oximetry (%) 12/25/16 12/25/16 12/25/16 13:39 13:44 13:59 Temperature 97.5 F L Pulse Rate 85 85 87 Respiratory 20 21 21 Rate Blood Pressure 98/61 95/43 105/50 O2 Sat by Pulse 94 L 93 L 97 Oximetry (%) 12/25/16 12/25/16 12/25/16 14:14 14:18 18:45 Temperature 97.5 F L 97.5 F L Pulse Rate 80 80 94 H Respiratory 21 22 20 Rate Blood Pressure 111/66 111/66 119/55 O2 Sat by Pulse 97 97 Oximetry (%) 12/25/16 12/26/16 12/26/16 21:00 02:00 06:06 Temperature 97.6 F 98.2 F 97.6 F Pulse Rate 81 84 81 Respiratory 16 20 16 Rate Blood Pressure 125/65 92/51 105/55 O2 Sat by Pulse Oximetry (%) 12/26/16 12/26/16 12/26/16 10:36 14:00 18:35 Temperature 97.8 F 98.2 F Pulse Rate 87 85 84 Respiratory 20 18 18 Rate Blood Pressure 116/65 103/70 118/75 O2 Sat by Pulse Oximetry (%) 12/26/16 12/26/16 12/27/16 21:00 22:00 02:00 Temperature 97.6 F 97.8 F Pulse Rate 87 89 Respiratory 18 20 20 Rate Blood Pressure 111/77 121/60 O2 Sat by Pulse Oximetry (%) 12/27/16 12/27/16 06:00 13:55 Temperature 97.6 F 97.2 F L Pulse Rate 86 88 Respiratory 20 20 Rate Blood Pressure 120/54 122/60 O2 Sat by Pulse Oximetry (%) Neck-no JVD Lungs-few rales. Heart S1S2 irregular, irregular Abdomen soft, NT EXT-trace edema UE, LE Fragile skin Laboratory Results - last 24 hr 12/26/16 12/27/16 12/27/16 16:11 06:15 08:15 WBC 10.1 H RBC 3.42 L Hgb 10.5 L Hct 32.3 L MCV 94.5 MCHC 32.6 RDW 17.5 H Plt Count 237 MPV 6.8 L Neutrophils % 80.8 Lymphocytes % 9.6 Monocytes % 7.6 Eosinophils % 1.6 Basophils % 0.4 INR 1.34 H Sodium 139 Potassium 5.0 Chloride 109 H Carbon Dioxide 19 L D Anion Gap 11 BUN 41 H Creatinine 0.8 Random Glucose 82 Calcium 7.9 L 12/27/16 08:15 WBC RBC Hgb Hct MCV MCHC RDW Plt Count MPV Neutrophils % Lymphocytes % Monocytes % Eosinophils % Basophils % INR 1.51 H Sodium Potassium Chloride Carbon Dioxide Anion Gap BUN Creatinine Random Glucose Calcium Current Active Problems Problem Status Diagnosed Acute renal insufficiency Acute Anemia Acute Atrial fibrillation, chronic Acute CAD (coronary artery disease) Acute GI bleeding Acute HLD (hyperlipidemia) Acute HTN (hypertension) Acute NSTEMI (non-ST elevated myocardial infarction) Acute Plan continue meds Change wound care for Santyl Continue meds. Food supplements. Problem List - Problems (1) Anemia Code(s): D64.9 - ANEMIA, UNSPECIFIED Qualifiers: Anemia type: other cause Other causes of anemia: acute posthemorrhagic Qualified Code(s): D62 - Acute posthemorrhagic anemia (2) Atrial fibrillation, chronic Code(s): I48.2 - CHRONIC ATRIAL FIBRILLATION (3) GI bleeding Code(s): K92.2 - GASTROINTESTINAL HEMORRHAGE, UNSPECIFIED Qualifiers: GI bleed type/associated pathology: anorectal hemorrhage Qualified Code (s): K62.5 - Hemorrhage of anus and rectum (4) NSTEMI (non-ST elevated myocardial infarction) Code(s): I21.4 - NON-ST ELEVATION (NSTEMI) MYOCARDIAL INFARCTION (5) Acute renal insufficiency Code(s): N28.9 - DISORDER OF KIDNEY AND URETER, UNSPECIFIED
[2016-12-27] MEDS ORDERED: WARFARIN NA 2 MG TABLET (UD) PO SCH (18:00)
[2016-12-27] MEDS: ATORVASTATIN CA 80 MG TABLET (FP) PO SCH (21:37)
[2016-12-27] MEDS: LATANOPROST 0.005% OPHTH SOLN 2.5ML BOTTLE OD SCH (21:37)
[2016-12-27] MEDS ORDERED: ACETAMINOPHEN 500 MG TABLET (FP) PO PRN (23:23)
[2016-12-28] MEDS ORDERED: PT OWN MED DRAWER 7, Y5N ONE (05:21)
[2016-12-28] MEDS: LEVOTHYROXINE NA 125 MCG TABLET (FP) PO SCH (06:10)
[2016-12-28] MEDS: BRIMONIDINE TARTRATE 0.1% OPHTHALMIC 5 ML BOTTLE OD SCH (06:10)
--- NOTE | 2016-12-28 07:36 | PN ---
Progress Note, Physician Chief Complaint: Awake, alert, NAD Tolerates Coumadin PO History of Present Illness: S/P UT-NSTENMI. UTI CAD. Angina. Chronic AFIB.Diastolic CHF PAD, B/L LE Bypass sx Hypothyroidism E.Coli infection HTN Hx TB Pressure sore Muscle weakness Cystectomy. - Current Medication List Current Medications: Active Medications Acetaminophen (Tylenol -) 500 mg PO Q8H PRN PRN Reason: PAIN Last Admin: 12/27/16 23:24 Dose: 500 mg Atorvastatin Calcium (Lipitor -) 80 mg PO HS [facility] Last Admin: 12/27/16 21:37 Dose: 80 mg Brimonidine Tartrate (Alphagan P 0.1% -) 1 drop OD TID [facility] Last Admin: 12/28/16 06:10 Dose: 1 drop Collagenase (Santyl -) 1 applic TP DAILY [facility] Docusate Sodium (Colace -) 100 mg PO DAILY [facility] Last Admin: 12/27/16 09:17 Dose: 100 mg Furosemide (Lasix -) 40 mg PO DAILY [facility] Last Admin: 12/27/16 09:18 Dose: 40 mg Latanoprost (Xalatan 0.005% Eye Drops -) 1 drop OD HS [facility] Last Admin: 12/27/16 21:37 Dose: 1 drop Levothyroxine Sodium (Synthroid -) 125 mcg PO DAILY@0700 [facility] Last Admin: 12/28/16 06:10 Dose: 125 mcg Pantoprazole Sodium (Protonix -) 40 mg PO DAILY [facility] Last Admin: 12/27/16 09:17 Dose: 40 mg Potassium Chloride (K-Dur -) 10 meq PO DAILY [facility] Last Admin: 12/27/16 09:18 Dose: 10 meq Ranolazine (Ranexa -) 500 mg PO BID [facility] Last Admin: 12/27/16 21:37 Dose: 500 mg Warfarin Sodium (Coumadin -) 2 mg PO DAILY@1800 [facility] Last Admin: 12/27/16 17:25 Dose: 2 mg - Objective Vital Signs: Vital Signs Temperature 97.3 F L 12/28/16 06:00 Pulse Rate 86 12/28/16 06:00 Respiratory Rate 20 12/28/16 06:00 Blood Pressure 119/69 12/28/16 06:00 O2 Sat by Pulse Oximetry (%) 96 12/27/16 20:40 Constitutional: Yes: No Distress, Calm Eyes: Yes: Conjunctiva Clear, EOM Intact HENT: Yes: Atraumatic, Normocephalic Neck: Yes: Supple, Decreased ROM. No: Tenderness Cardiovascular: Yes: Pulse Irregular, Murmur, S1, S2. No: Tachycardia, JVD Respiratory: Yes: On Nasal O2, Rales (B?) Gastrointestinal: Yes: Normal Bowel Sounds, Soft. No: Abdomen, Obese, Ascites, Palpable Mass ...Rectal Exam: Yes: Deferred Genitourinary: No: Anuria, Bladder Distention Breast(s): Yes: WNL Musculoskeletal: No: Joint Swelling Edema: Yes Edema: LUE: Trace, RUE: Trace, LLE: Trace, RLE: Trace Peripheral Pulses WNL: No Integumentary: Yes: Bruising, Pressure Ulcer (sacrum) Neurological: Yes: Alert, Oriented. No: Aphasia, Dysarthria Psychiatric: Yes: WNL Labs: CBC, BMP 12/27/16 08:15 12/27/16 06:15 INR, PTT INR 1.51 (0.82-1.09) H 12/27/16 08:15 Fibrinogen 328.0 mg/dL (238-498) 12/22/16 05:35 Problem List - Problems (1) Anemia Assessment/Plan: Stable H/H Continue coumadin Code(s): D64.9 - ANEMIA, UNSPECIFIED Qualifiers: Anemia type: other cause Other causes of anemia: acute posthemorrhagic Qualified Code(s): D62 - Acute posthemorrhagic anemia (2) Atrial fibrillation, chronic Assessment/Plan: On coumadin now Controlled V-Rate Code(s): I48.2 - CHRONIC ATRIAL FIBRILLATION (3) GI bleeding Assessment/Plan: pud ON egd cONTINUE pROTONIX po Code(s): K92.2 - GASTROINTESTINAL HEMORRHAGE, UNSPECIFIED Qualifiers: GI bleed type/associated pathology: anorectal hemorrhage Qualified Code (s): K62.5 - Hemorrhage of anus and rectum (4) NSTEMI (non-ST elevated myocardial infarction) Assessment/Plan: Probably type 2 UT. Stable now. No CP. Code(s): I21.4 - NON-ST ELEVATION (NSTEMI) MYOCARDIAL INFARCTION (5) Acute renal insufficiency Assessment/Plan: Elevated BUN and increased BUN/Creat Improving BUN/Creat Code(s): N28.9 - DISORDER OF KIDNEY AND URETER, UNSPECIFIED (6) CHF (congestive heart failure) Assessment/Plan: cONTINUE lASIX po Code(s): I50.9 - HEART FAILURE, UNSPECIFIED Qualifiers: Congestive heart failure type: combined Congestive heart failure chronicity: chronic Qualified Code(s): I50.42 - Chronic combined systolic (congestive) and diastolic (congestive) heart failure
--- NOTE | 2016-12-28 07:39 | DS ---
Physical Examination Vital Signs: Vital Signs Temperature 97.3 F L 12/28/16 06:00 Pulse Rate 86 12/28/16 06:00 Respiratory Rate 20 12/28/16 06:00 Blood Pressure 119/69 12/28/16 06:00 O2 Sat by Pulse Oximetry (%) 96 12/27/16 20:40 Constitutional: Yes: Calm. No: No Distress Eyes: Yes: Conjunctiva Clear, EOM Intact HENT: Yes: Atraumatic, Normocephalic Neck: Yes: Supple, Trachea Midline, Decreased ROM Cardiovascular: Yes: Pulse Irregular, Murmur, S1, S2. No: Tachycardia, JVD Respiratory: Yes: On Nasal O2, Rales (b?b) Gastrointestinal: Yes: Normal Bowel Sounds, Soft. No: Ascites, Palpable Mass, Tenderness ...Rectal Exam: Yes: Deferred Renal/: No: Anuria Breast(s): Yes: WNL Musculoskeletal: Yes: Joint Stiffness Extremities: Yes: Cyanosis, Delayed Capillary Refill. No: Calf Tenderness, Cold Edema: LUE: Trace, RUE: Trace, LLE: Trace, RLE: Trace Peripheral Pulses WNL: No Integumentary: Yes: Bruising, Pressure Ulcer Neurological: Yes: Alert, Oriented. No: Aphasia, Dysarthria, Lethargy Psychiatric: Yes: WNL Labs: CBC, BMP 12/27/16 08:15 12/27/16 06:15 Discharge Summary Reason For Visit: GI BLEED, ANEMIA, A-FIB Current Active Problems Acute renal insufficiency (Acute) Anemia (Acute) Atrial fibrillation, chronic (Acute) CAD (coronary artery disease) (Acute) CHF (congestive heart failure) (Acute) GI bleeding (Acute) HLD (hyperlipidemia) (Acute) HTN (hypertension) (Acute) Hypothyroid (Acute) NSTEMI (non-ST elevated myocardial infarction) (Acute) Condition: Improved - Instructions Referrals: Earl Goodwin MD [Primary Care Provider] - Disposition: [facility] FACILITY - Home Medications Comprehensive Discharge Medication List: Ambulatory Orders Aspirin [ASA -] 81 mg PO DAILY 12/20/16 Brimonidine Tartrate [Alphagan P 0.1% -] 1 drop OU Q8H 12/20/16 Docusate Sodium 100 mg PO DAILY 12/20/16 Furosemide [Lasix] 80 mg PO DAILY 12/20/16 Latanoprost 0.005% Eye Drops [Xalatan 0.005% Eye Drops -] 1 drop OU HS 12/20/16 Levothyroxine [Synthroid -] 125 mcg PO DAILY 12/20/16 Metoprolol Tartrate 75 mg PO DAILY 12/20/16 Potassium Chloride [Klor-Con 10] 10 meq PO DAILY 12/20/16 Ranolazine [Ranexa -] 500 mg PO Q12H 12/20/16 Rivaroxaban [Xarelto -] 10 mg PO DAILY 12/20/16 Sennosides [Senokot] 8.6 mg PO BID 12/20/16 Valsartan [Diovan] 80 mg PO DAILY 12/20/16 Acetaminophen [Tylenol -] 650 mg PO Q6H PRN 12/21/16 Acetaminophen [Tylenol] 650 mg PO ASDIR 12/21/16 Arginine/Ascorbate Sod/Michael AC [Arginaid Powder] 1 each PO TID 12/21/16 Ascorbate Calcium [Vitamin C] 500 mg PO DAILY 12/21/16 Cran-Raspberry Flavor 30 ml PO BID 12/21/16 Lactulose [Cephulac -] 30 gm PO HS 12/21/16 Multivitamin with Minerals [Icaps Plus] 1 each PO DAILY 12/21/16 Tramadol HCl 50 mg PO Q6H PRN 12/21/16
[2016-12-28 08:42] LABS: INR 1.57 (0.82-1.09); PROTHROMBIN TIME (PATIENT) 17.4 SEC (9.98-11.88)
[2016-12-28] MEDS ORDERED: COLLAGENASE CLOSTRIDIUM HIST. 30 GRAMS TUBE TP SCH (10:00)
[2016-12-28] MEDS: RANOLAZINE E.R. 500 MG TABLET (FP) PO SCH (10:05)
[2016-12-28] MEDS: POTASSIUM CHLORIDE TABS 10 MEQ TABLET.ER (FP) PO SCH (10:06)
[2016-12-28] MEDS: FUROSEMIDE 40 MG TABLET (FP) PO SCH (10:06)
[2016-12-28] MEDS: DOCUSATE SODIUM 100 MG CAPSULE (FP) PO SCH (10:06)
[2016-12-28] MEDS: PANTOPRAZOLE 40 MG TABLET (FP) PO SCH (10:06)
[2016-12-28 10:18] VITALS: BP 123/55; PULSE 91; TEMP 97.4
--- NOTE | 2016-12-28 12:26 | PN ---
Progress Note, Physician History of Present Illness: seen and examined today in nad. pt being discharged today. no overnight events. no new complaints. - Objective Vital Signs: Vital Signs Temperature 97.4 F L 12/28/16 10:05 Pulse Rate 91 H 12/28/16 10:05 Respiratory Rate 20 12/28/16 10:05 Blood Pressure 123/55 12/28/16 10:05 O2 Sat by Pulse Oximetry (%) 96 12/27/16 20:40 Constitutional: Yes: Well Nourished, No Distress, Calm Eyes: Yes: WNL, Conjunctiva Clear, EOM Intact, PERRL HENT: Yes: WNL, Atraumatic, Normocephalic Neck: Yes: WNL, Supple, Trachea Midline Cardiovascular: Yes: Pulse Irregular, S1, S2. No: Regular Rate and Rhythm, Bradycardia, Tachycardia, Bruit, JVD, Gallop, Murmur, Rub, S3, S4, Varicosities Respiratory: Yes: Regular, CTA Bilaterally. No: Rales, Rhonchi, Wheezes Gastrointestinal: Yes: WNL, Normal Bowel Sounds, Soft. No: Distention, Tenderness Musculoskeletal: Yes: WNL Extremities: Yes: WNL Edema: No Peripheral Pulses WNL: Yes Peripheral Pulses: Left Doralis Pedis: 2+, Right Dorsalis Pedis: 2+ Integumentary: Yes: WNL Neurological: Yes: Alert, Oriented Psychiatric: Yes: Alert, Oriented Labs: CBC, BMP 12/27/16 08:15 12/27/16 06:15 INR, PTT INR 1.57 (0.82-1.09) H 12/28/16 07:50 Fibrinogen 328.0 mg/dL (238-498) 12/22/16 05:35 - ....Imaging Chest X-ray: Report Reviewed, Image Reviewed EKG: Report Reviewed, Image Reviewed Other: Report Reviewed, Image Reviewed (tele-AFib, HR controlled, PVCs) Problem List - Problems (1) Acute renal insufficiency Code(s): N28.9 - DISORDER OF KIDNEY AND URETER, UNSPECIFIED (2) Anemia Code(s): D64.9 - ANEMIA, UNSPECIFIED Qualifiers: Anemia type: other cause Other causes of anemia: acute posthemorrhagic Qualified Code(s): D62 - Acute posthemorrhagic anemia (3) Atrial fibrillation, chronic Code(s): I48.2 - CHRONIC ATRIAL FIBRILLATION (4) GI bleeding Code(s): K92.2 - GASTROINTESTINAL HEMORRHAGE, UNSPECIFIED Qualifiers: GI bleed type/associated pathology: anorectal hemorrhage Qualified Code (s): K62.5 - Hemorrhage of anus and rectum (5) NSTEMI (non-ST elevated myocardial infarction) Code(s): I21.4 - NON-ST ELEVATION (NSTEMI) MYOCARDIAL INFARCTION (6) CAD (coronary artery disease) Code(s): I25.10 - ATHSCL HEART DISEASE OF [place] CORONARY ARTERY W/O ANG PCTRS (7) HTN (hypertension) Code(s): I10 - ESSENTIAL (PRIMARY) HYPERTENSION (8) HLD (hyperlipidemia) Code(s): E78.5 - HYPERLIPIDEMIA, UNSPECIFIED Assessment/Plan Chronic AF GI Bleed Systolic CHF, acute on chronic Atrial fibrillation-chronic, had been on Xarelto -admitted with GI bleed with significant anemia requiring 2 units PRBC, found to have resolved gastric ulcer bleed on endoscopy -Xarelto stopped, started on coumadin, has tolerated it without further bleeding -to cont coumadin without bridging and allow INR to slowly trend up to therapeutic range 2-3 -HR is currently adequately controlled -ok from a cardiac standpoint for discharge back to [place] NSTEMI-h/o CAD with prior NSTEMI -troponin slightly elevated on admission but did not trend up -likely demand ischemia, type II VT, in setting of GI bleed/anemia with known underlying CAD -metoprolol as BP tolerates -cont statin -given advanced age and significant co-morbidities (including GI bleed and DMITRY) pt unlikely to benefit from cardiac cath, plan to treat conservatively -remained euvolemic -echo showed mild global LV systolic dysfunction and mod MR Chronic systolic CHF- -echo as above -lasix as needed
--- NOTE | 2016-12-29 12:16 | PATH ---
Surgical Pathology Report Patient Name: HAILEY SANTOS [facility]. Rec. #: [id number] /Age/Gender: 1925 (Age: 89) / F Account: [id number] Location: [facility] Taken: 12/25/2016 Received: 12/28/2016 Reported: 12/29/2016 Physicians: Cahtie Villalba M.D. 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 IMMUNOSTAIN FOR H. PYLORI IS NEGATIVE FOR ORGANISMS. Electronically Signed Cyrus Sanchez M.D. Gross Description Received in formalin, labeled "biopsy antral ulceration" is a ashby, irregular portion of soft tissue measuring 0.3 cm in greatest dimension. The specimen is submitted in toto in one cassette. /12/28/2016 saudi/12/28/2016
== END 2016-12-28 11:47 | DRG 377 ==
LOC: JER 18:34 → JERBED 21:23 → J4S 12-21 13:12
PROVIDERS: ADMIT Internal Medicine; ATTEND Internal Medicine
PROC: 30233N1 Transfusion of Nonautologous Red Blood Cells into Peripheral Vein, Percutaneous Approach (ICD-10-PCS; 2016-12-21)
PROC: 0DB68ZX Excision of Stomach, Via Natural or Artificial Opening Endoscopic, Diagnostic (ICD-10-PCS; principal; 2016-12-25 12:00)
DX: K25.4 Chronic or unspecified gastric ulcer with hemorrhage (principal); I50.23 Acute on chronic systolic (congestive) heart failure; I21.4 Non-ST elevation (NSTEMI) myocardial infarction; D62 Acute posthemorrhagic anemia; N39.0 Urinary tract infection, site not specified; I48.2 Chronic atrial fibrillation; E03.9 Hypothyroidism, unspecified; E78.5 Hyperlipidemia, unspecified; I25.2 Old myocardial infarction; I25.119 Atherosclerotic heart disease of native coronary artery with unspecified angina pectoris; I11.0 Hypertensive heart disease with heart failure; B96.20 Unspecified Escherichia coli [E. coli] as the cause of diseases classified elsewhere
CPT/HCPCS: 36415; 36430; 71010-TC; 80048; 80053; 81003; 81015; 82272; 82550; 82607; 82728; 82747; 83036; 83540; 83550; 83605; 83735; 84100; 84443; 84481; 84484; 85014; 85025; 85027; 85384; 85610; 85730; 86850; 86900; 86901; 86922; 87040; 87086; 88305-TC; 93005; 93010; 93306-TC; 99285-25; P9038; P9058